=== PATIENT | female | born 1960 | race Caucasian/White ===

== ENCOUNTER 2017-10-24 05:15 | Inpatient (IN) | payer MEDICAID, OTHER ==
[~2017-10-24] VITALS: Ht 157.5 cm; Wt 78.0 kg
[~2017-10-24 05:15] MED LIST: CITA40TA5 PO; INSU100V8 SQ; TRAM50TA2 PO; UNKOWN HTN MED
[2017-10-24] MEDS ORDERED: ALBUTEROL/IPRATROPIUM 2.5MG/0.5MG, 3 ML ONE (05:28)
[2017-10-24 05:51] LABS: MEAN CORPUSCULAR HEMOGLOBIN 30.6 pg (27.0-34.8); MEAN CORPUSCULAR HGB CONC 34.5 g/dL (32.4-35.8); MEAN CORPUSCULAR VOLUME 88.7 fL (80-100); MEAN PLATELET VOLUME 7.8 fL (7.4-10.4); PLATELET COUNT 259 x10^3/uL (130-400); RED BLOOD COUNT 5.21 x10^6/uL (3.82-5.3)
[2017-10-24 05:57] LABS: INTERNATIONAL NORMALIZED RATIO 0.97 (0.93-1.1); PROTHROMBIN TIME 10.1 Seconds (9.6-11.5)
[2017-10-24] MEDS ORDERED: SODIUM CHLORIDE FLUSH 10ML SYR IVF ONE ×2 (06:00→06:30)
[2017-10-24] MEDS ORDERED: ALBUTEROL/IPRATROPIUM 2.5MG/0.5MG, 3 ML NPPB ONE (06:00)
[2017-10-24] MEDS ORDERED: methylPREDNISolone SOD SUCC 125 MG/2 ML IVP ONE (06:00)
[2017-10-24 06:01] LABS: ALANINE AMINOTRANSFERASE 44 U/L (12-78); ALBUMIN 3.2 g/dL (3.4-5.0); ANION GAP 15 mmol/L (5-15); CALCIUM 8.2 mg/dL (8.5-10.1); CHLORIDE 105 mmol/L (98-107); CREATININE 1.43 mg/dL (0.55-1.02)
[2017-10-24 06:05] LABS: ALKALINE PHOSPHATASE 117 U/L (45-117); BILIRUBIN,TOTAL 1.2 mg/dL (0.2-1.0); TROPONIN I < 0.015 ng/mL (0.000-0.045)
[2017-10-24 06:08] LABS: MD YES
[2017-10-24] MEDS ORDERED: methylPREDNISolone SOD SUCC 125 MG/2 ML ONE (06:12)
[2017-10-24 06:15] LABS: BAND#(MANUAL) 4.08 x10^3/uL; BANDS%(MANUAL) 27 % (0-7); LYMPH#(MANUAL) 1.66 x10^3/uL (1-3.4); LYMPHS% (MANUAL) 11 % (22-44); METAMYELOCYTES# (MANUAL) 0.15 x10^3/uL (0-0); METAMYELOCYTES% (MANUAL) 1 % (0-1); MONOS#(MANUAL) 0.45 x10^3/uL (0.3-2.7); MONOS% (MANUAL) 3 % (2-9); SEG#(MANUAL) 8.76 x10^3/uL (1.8-6.8); SEGS% (MANUAL) 58 % (42-75)
[2017-10-24 06:17] LABS: <PLATELET ESTIMATE> ADEQUATE; <PLT MORPHOLOGY> NORMAL PLT MORPH; <RBC MORPHOLOGY> NORMAL; TOXIC GRAN 1+
[2017-10-24] MEDS ORDERED: PIPERACILLIN/TAZO/PMX 3.375GM 50 ML IV ONE (06:30)
[2017-10-24] MEDS ORDERED: SODIUM CHLORIDE 0.9% 1,000ML IVBOLUS ONE ×3 (06:30→11:30)
[2017-10-24] MEDS ORDERED: VANCOMYCIN 1,600 MG in SODIUM CHLORIDE 0.9% 250 ML IV ONE (06:30)
[2017-10-24] MEDS ORDERED: MORPHINE SULFATE 4 MG/ML, 1ML ONE ×2 (06:34→07:13)
[2017-10-24] MEDS: MORPHINE SULFATE 4 MG/ML, 1ML IVPush PRN ×2 (06:36→07:16)
[2017-10-24] MEDS ORDERED: PIPERACILLIN/TAZO/PMX 3.375GM 50 ML ONE (06:37)
[2017-10-24] MEDS ORDERED: POTASSIUM CHLORIDE 40 MEQ in SODIUM CHLORIDE 0.9% 500 ML IV ONE (07:30)
[2017-10-24] MEDS ORDERED: FENTANYL PF 100 MCG/2ML ONE (07:58)
[2017-10-24] MEDS ORDERED: MIDAZOLAM 1 MG/ML, 5ML ONE (08:00)
[2017-10-24] MEDS ORDERED: LIDOCAINE 4% TOPICAL SOLUTION 50 ML ONE (08:00)
[2017-10-24] MEDS ORDERED: ROCURONIUM 10 MG/ML,10ML ONE (08:00)
[2017-10-24] MEDS ORDERED: LIDOCAINE GEL 2%, 5ML ONE (08:00)
[2017-10-24] MEDS ORDERED: LORazepam 2 MG/ML, 1ML IVPush ONE (08:00)
[2017-10-24] MEDS ORDERED: FENTANYL PF 100 MCG/2ML IV ONE (08:00)
[2017-10-24] MEDS ORDERED: PROPOFOL 10 MG/ML, 100ML IV ONE (08:00)
[2017-10-24 09:11] LABS: O2 FLOW 6 L/min
[2017-10-24] MEDS ORDERED: ENALAPRILAT 1.25 MG/ML, 2ML IVPush PRN (09:30)
[2017-10-24] MEDS ORDERED: POLYETHYLENE GLYCOL 17 GM PACKET PO PRN (09:30)
[2017-10-24] MEDS ORDERED: BISACODYL 10 MG SUPP PR PRN ×2 (09:30→11:30)
[2017-10-24] MEDS ORDERED: PROMETHAZINE 25 MG/ML, 1ML IM PRN (09:30)
[2017-10-24] MEDS ORDERED: NS + 20MEQ KCL 1,000 ML IV SCH (10:30)
[2017-10-24] MEDS ORDERED: PROPOFOL 100 ML IV PRN (11:00)
[2017-10-24] MEDS ORDERED: ROCURONIUM 10 MG/ML,10ML IVPush ONE (11:00)
[2017-10-24] MEDS ORDERED: MIDAZOLAM 1 MG/ML, 5ML IVPush ONE (11:00)
[2017-10-24] MEDS: CEFTRIAXONE PMX 2GM/50ML 50 ML IV SCH (11:15)
[2017-10-24] MEDS: DOXYCYCLINE 100 MG in DEXTROSE 5% 250 ML IV SCH ×2 (11:15→23:13)
[2017-10-24] MEDS ORDERED: SENNOSIDES 8.8 MG/5 ML ORAL SOL NG PRN (11:30)
[2017-10-24] MEDS ORDERED: PHARMACY MAY ADJ FOR RENAL FX MC SCH (11:30)
[2017-10-24] MEDS ORDERED: LACTULOSE 20 GM/30 ML UDC NG PRN (11:30)
[2017-10-24] MEDS ORDERED: SENNA/DOCUSATE TABLET NG PRN (11:30)
[2017-10-24] MEDS ORDERED: DEXTROSE 50%, 50ML SYRINGE IVPush PRN (11:30)
[2017-10-24] MEDS ORDERED: GLUCAGON 1 MG IM PRN (11:30)
[2017-10-24] MEDS ORDERED: FAMOTIDINE 20 MG/2 ML IV SCH (11:30)
[2017-10-24] MEDS ORDERED: DEXTROSE 4 GM TAB.CHEW PO PRN (11:30)
[2017-10-24] MEDS ORDERED: INSULIN LISPRO 100 UNITS/ML, PEN SQ-INSULIN SCH (11:30)
[2017-10-24 11:58] LABS: FIO2 100 %
[2017-10-24] MEDS ORDERED: MAGNESIUM SULFATE PMX 4GM/100M 100 ML IV ONE (12:30)
[2017-10-24] MEDS ORDERED: POTASSIUM PHOSPHATE 44 MEQ in SODIUM CHLORIDE 0.9% 500 ML IV ONE (12:30)
[2017-10-24] MEDS: INSULIN LISPRO 100 UNITS/ML, PEN SQ-INSULIN SCH ×3 (12:43→22:31)
[2017-10-24] MEDS: SODIUM CHLORIDE FLUSH 10ML SYR IVF SCH ×2 (12:43→22:30)
[2017-10-24 13:20] LABS: AMPHETAMINE SCREEN, URINE Negative (Negative); BARBITURATE SCREEN, URINE Negative (Negative); BENZODIAZEPINE SCREEN, URINE Positive (Negative); CANNABINOID SCREEN, URINE Negative (Negative); COCAINE SCREEN, URINE Negative (Negative); METHADONE SCREEN, URINE Negative (Negative); OPIATE SCREEN, URINE Positive (Negative)
[2017-10-24 13:25] LABS: FIO2 80 %
[2017-10-24] MEDS ORDERED: SODIUM BICARB IV SCH (14:00)
[2017-10-24] MEDS ORDERED: POTASSIUM CHLORIDE IV SCH (14:00)
[2017-10-24] MEDS ORDERED: [UNRECOGNIZED DRUG - OTHER] IV SCH (14:00)
[2017-10-24] MEDS ORDERED: POTASSIUM CHLORIDE 10% 40 MEQ/30 ML UDC PO ONE (14:00)
[2017-10-24 14:04] LABS: ANION GAP 12 mmol/L (5-15); CHLORIDE 116 mmol/L (98-107); CREATININE 1.08 mg/dL (0.55-1.02)
[2017-10-24] MEDS ORDERED: SODIUM BICARBONATE 1 MEQ/ML, 50ML VIAL IVPush STA (14:22)
[2017-10-24] MEDS: [UNRECOGNIZED DRUG - OTHER] IV SCH ×2 (14:35→23:13)
[2017-10-24] MEDS: SODIUM BICARB IV SCH ×2 (14:35→23:13)
[2017-10-24] MEDS: POTASSIUM ACETATE IV SCH ×2 (14:35→23:13)
[2017-10-24] MEDS: MIDAZOLAM HCL 50 MG in SODIUM CHLORIDE 0.9% 240 ML IV PRN ×2 (15:06→21:03)
[2017-10-24] MEDS: FENTANYL PF 100 MCG/2ML IVPush PRN ×5 (15:14→22:19)
[2017-10-24] MEDS: ALBUTEROL/IPRATROPIUM 2.5MG/0.5MG, 3 ML INLINE SCH ×3 (15:23→22:55)
[2017-10-24] MEDS: NOREPINEPHRINE 4 MG in SODIUM CHLORIDE 0.9% 246 ML IV SCH ×2 (15:47→21:03)
[2017-10-24] MEDS: ACETAMINOPHEN 325 MG TABLET PO PRN (22:16)
[2017-10-24] MEDS: SODIUM CHLORIDE 0.9% 1,000 ML IV SCH (23:13)
[2017-10-25] MEDS: FENTANYL PF 2,500 MCG in SODIUM CHLORIDE 0.9% 200 ML IV PRN ×2 (00:09→16:05)
[2017-10-25] MEDS: ALBUTEROL/IPRATROPIUM 2.5MG/0.5MG, 3 ML INLINE SCH ×6 (02:46→22:31)
[2017-10-25] MEDS: MIDAZOLAM HCL 50 MG in SODIUM CHLORIDE 0.9% 240 ML IV PRN ×4 (03:53→21:14)
[2017-10-25 04:00] VITALS: BP 86/55
[2017-10-25] MEDS: NOREPINEPHRINE 4 MG in SODIUM CHLORIDE 0.9% 246 ML IV SCH ×2 (05:31→21:17)
[2017-10-25 06:04] LABS: ALBUMIN 1.6 g/dL (3.4-5.0); ANION GAP 7 mmol/L (5-15); CALCIUM 7.1 mg/dL (8.5-10.1); CHLORIDE 118 mmol/L (98-107)
[2017-10-25 06:09] LABS: ALANINE AMINOTRANSFERASE 22 U/L (12-78); ALKALINE PHOSPHATASE 49 U/L (45-117); CREATININE 0.79 mg/dL (0.55-1.02); TOTAL PROTEIN 4.9 g/dL (6.4-8.2)
[2017-10-25] MEDS: SODIUM CHLORIDE 0.9% 1,000 ML IV SCH (06:35)
[2017-10-25 06:58] LABS: MEAN CORPUSCULAR HEMOGLOBIN 29.7 pg (27.0-34.8); MEAN CORPUSCULAR HGB CONC 33.5 g/dL (32.4-35.8); MEAN CORPUSCULAR VOLUME 88.8 fL (80-100); MEAN PLATELET VOLUME 7.9 fL (7.4-10.4); PLATELET COUNT 156 x10^3/uL (130-400); RED BLOOD COUNT 3.82 x10^6/uL (3.82-5.3); RED CELL DISTRIBUTION WIDTH 15.5 % (9.6-15.2)
[2017-10-25 07:02] LABS: MD YES
[2017-10-25 07:46] LABS: ANISOCYTOSIS 1+; BANDS%(MANUAL) 31 % (0-7); LYMPH#(MANUAL) 0.38 x10^3/uL (1-3.4); LYMPHS% (MANUAL) 9 % (22-44); METAMYELOCYTES% (MANUAL) 12 % (0-1); MONOS#(MANUAL) 0.17 x10^3/uL (0.3-2.7); MONOS% (MANUAL) 4 % (2-9); PMNS WITH VACUOLES 1+; SEG#(MANUAL) 1.85 x10^3/uL (1.8-6.8); SEGS% (MANUAL) 44 % (42-75); TOXIC GRAN 1+
[2017-10-25 07:47] LABS: <PLATELET ESTIMATE> ADEQUATE; <PLT MORPHOLOGY> NORMAL PLT MORPH
[2017-10-25] MEDS: SODIUM CHLORIDE FLUSH 10ML SYR IVF SCH (09:00)
[2017-10-25] MEDS: INSULIN LISPRO 100 UNITS/ML, PEN SQ-INSULIN SCH ×3 (09:25→21:16)
[2017-10-25] MEDS: PANTOPRAZOLE 40 MG IV IVPush SCH (09:25)
[2017-10-25] MEDS: SENNA/DOCUSATE TABLET PO SCH (09:26)
[2017-10-25] MEDS: CITALOPRAM 20 MG TABLET PO SCH (09:26)
[2017-10-25] MEDS: SODIUM BICARBONATE 8.4% 100 MEQ in SODIUM CHLORIDE 0.45% 1,000 ML IV SCH ×2 (09:48→21:14)
[2017-10-25] MEDS: CEFTRIAXONE PMX 2GM/50ML 50 ML IV SCH (10:34)
[2017-10-25] MEDS: DOXYCYCLINE 100 MG in DEXTROSE 5% 250 ML IV SCH ×2 (11:29→23:42)
[2017-10-25] MEDS: ACETAMINOPHEN 325 MG TABLET PO PRN ×2 (18:27→23:42)
[2017-10-25] MEDS: INSULIN GLARGINE 100 UNITS/ML, PEN SQ-INSULIN SCH (21:16)
[2017-10-26] MEDS: ALBUTEROL/IPRATROPIUM 2.5MG/0.5MG, 3 ML INLINE SCH ×6 (02:48→22:00)
[2017-10-26] MEDS: INSULIN LISPRO 100 UNITS/ML, PEN SQ-INSULIN SCH ×4 (03:52→21:25)
[2017-10-26 04:00] VITALS: BP 94/58
[2017-10-26 04:24] LABS: ANION GAP 6 mmol/L (5-15); CALCIUM 7.2 mg/dL (8.5-10.1); CHLORIDE 116 mmol/L (98-107)
[2017-10-26 04:40] LABS: MEAN CORPUSCULAR HEMOGLOBIN 31.2 pg (27.0-34.8); MEAN CORPUSCULAR HGB CONC 34.6 g/dL (32.4-35.8); MEAN PLATELET VOLUME 8.4 fL (7.4-10.4); PLATELET COUNT 113 x10^3/uL (130-400); RED BLOOD COUNT 3.26 x10^6/uL (3.82-5.3); RED CELL DISTRIBUTION WIDTH 16.8 % (9.6-15.2)
[2017-10-26 05:37] LABS: MD YES
[2017-10-26 05:41] LABS: BAND#(MANUAL) 1.13 x10^3/uL; BANDS%(MANUAL) 21 % (0-7); LYMPH#(MANUAL) 0.38 x10^3/uL (1-3.4); LYMPHS% (MANUAL) 7 % (22-44); MONOS#(MANUAL) 0.16 x10^3/uL (0.3-2.7); MONOS% (MANUAL) 3 % (2-9); NRBC % (MANUAL) 1 % (0-1); SEG#(MANUAL) 3.73 x10^3/uL (1.8-6.8); SEGS% (MANUAL) 69 % (42-75)
[2017-10-26 05:43] LABS: <PLATELET ESTIMATE> DECREASED; <PLT MORPHOLOGY> NORMAL PLT MORPH; <RBC MORPHOLOGY> NORMAL
[2017-10-26] MEDS: SODIUM BICARBONATE 8.4% 100 MEQ in SODIUM CHLORIDE 0.45% 1,000 ML IV SCH ×3 (06:40→23:43)
[2017-10-26] MEDS: LINEZOLID PMX 600MG/300ML 300 ML IV SCH ×2 (08:57→21:21)
[2017-10-26] MEDS: MIDAZOLAM HCL 50 MG in SODIUM CHLORIDE 0.9% 240 ML IV PRN ×2 (08:57→16:23)
[2017-10-26] MEDS: FENTANYL PF 2,500 MCG in SODIUM CHLORIDE 0.9% 200 ML IV PRN (08:58)
[2017-10-26] MEDS: CITALOPRAM 20 MG TABLET PO SCH (08:59)
[2017-10-26] MEDS: NOREPINEPHRINE 4 MG in SODIUM CHLORIDE 0.9% 246 ML IV SCH ×2 (08:59→21:29)
[2017-10-26] MEDS: SENNA/DOCUSATE TABLET PO SCH (08:59)
[2017-10-26] MEDS: PANTOPRAZOLE 40 MG IV IVPush SCH (09:00)
[2017-10-26] MEDS: INSULIN GLARGINE 100 UNITS/ML, PEN SQ-INSULIN SCH ×2 (09:00→21:25)
[2017-10-26] MEDS: CEFTRIAXONE PMX 2GM/50ML 50 ML IV SCH (11:22)
[2017-10-26] MEDS: DOXYCYCLINE 100 MG in DEXTROSE 5% 250 ML IV SCH ×2 (12:09→23:43)
[2017-10-26] MEDS ORDERED: FUROSEMIDE 20 MG/2 ML ONE (16:13)
[2017-10-26] MEDS ORDERED: FUROSEMIDE 20 MG/2 ML IV ONE (16:30)
[2017-10-27] MEDS: MIDAZOLAM HCL 50 MG in SODIUM CHLORIDE 0.9% 240 ML IV PRN (01:41)
[2017-10-27] MEDS: ALBUTEROL/IPRATROPIUM 2.5MG/0.5MG, 3 ML INLINE SCH ×6 (02:00→23:10)
[2017-10-27] MEDS: INSULIN LISPRO 100 UNITS/ML, PEN SQ-INSULIN SCH ×4 (03:37→21:31)
[2017-10-27 04:00] VITALS: BP 110/65
[2017-10-27 04:41] LABS: MEAN CORPUSCULAR HEMOGLOBIN 30.8 pg (27.0-34.8); MEAN CORPUSCULAR HGB CONC 34.2 g/dL (32.4-35.8); MEAN CORPUSCULAR VOLUME 89.9 fL (80-100); MEAN PLATELET VOLUME 8.6 fL (7.4-10.4); PLATELET COUNT 117 x10^3/uL (130-400); RED BLOOD COUNT 3.69 x10^6/uL (3.82-5.3); RED CELL DISTRIBUTION WIDTH 15.9 % (9.6-15.2)
[2017-10-27 04:42] LABS: ANION GAP 6 mmol/L (5-15); CALCIUM 7.6 mg/dL (8.5-10.1); CHLORIDE 104 mmol/L (98-107)
[2017-10-27 04:43] LABS: CREATININE 0.61 mg/dL (0.55-1.02); TRIGLYCERIDES 262 mg/dL (50-200)
[2017-10-27 05:41] LABS: MD YES
[2017-10-27 05:44] LABS: MONOS#(MANUAL) 0.36 x10^3/uL (0.3-2.7); MONOS% (MANUAL) 4 % (2-9)
[2017-10-27 05:46] LABS: ANISOCYTOSIS 1+; BAND#(MANUAL) 1.27 x10^3/uL; BANDS%(MANUAL) 14 % (0-7); LYMPH#(MANUAL) 1.27 x10^3/uL (1-3.4); LYMPHS% (MANUAL) 14 % (22-44); METAMYELOCYTES# (MANUAL) 0.18 x10^3/uL (0-0); METAMYELOCYTES% (MANUAL) 2 % (0-1); SEG#(MANUAL) 6.01 x10^3/uL (1.8-6.8); SEGS% (MANUAL) 66 % (42-75)
[2017-10-27 05:47] LABS: <PLATELET ESTIMATE> DECREASED; <PLT MORPHOLOGY> NORMAL PLT MORPH; PMNS WITH VACUOLES 1+; TOXIC GRAN 1+
[2017-10-27] MEDS: SODIUM BICARBONATE 8.4% 100 MEQ in SODIUM CHLORIDE 0.45% 1,000 ML IV SCH (07:12)
[2017-10-27] MEDS: PANTOPRAZOLE 40 MG IV IVPush SCH (07:45)
[2017-10-27] MEDS ORDERED: SODIUM PHOSPHATE 20 MMOL in SODIUM CHLORIDE 0.9% 500 ML IV ONE (08:00)
[2017-10-27] MEDS: SENNA/DOCUSATE TABLET PO SCH (09:00)
[2017-10-27] MEDS: MIDAZOLAM HCL 100 MG in SODIUM CHLORIDE 0.9% 230 ML IV PRN (09:21)
[2017-10-27] MEDS: LINEZOLID PMX 600MG/300ML 300 ML IV SCH ×2 (09:21→21:30)
[2017-10-27] MEDS: CITALOPRAM 20 MG TABLET PO SCH (09:22)
[2017-10-27] MEDS: INSULIN GLARGINE 100 UNITS/ML, PEN SQ-INSULIN SCH ×2 (09:23→21:31)
[2017-10-27] MEDS: FENTANYL PF 2,500 MCG in SODIUM CHLORIDE 0.9% 200 ML IV PRN (10:35)
[2017-10-27] MEDS: CEFTRIAXONE PMX 2GM/50ML 50 ML IV SCH (11:12)
[2017-10-27] MEDS: NOREPINEPHRINE 4 MG in SODIUM CHLORIDE 0.9% 246 ML IV SCH (19:56)
[2017-10-27] MEDS: ACETAMINOPHEN 325 MG TABLET PO PRN (22:58)
[2017-10-28] MEDS: MIDAZOLAM HCL 100 MG in SODIUM CHLORIDE 0.9% 230 ML IV PRN ×2 (01:44→19:48)
[2017-10-28] MEDS: ALBUTEROL/IPRATROPIUM 2.5MG/0.5MG, 3 ML INLINE SCH ×6 (02:57→23:19)
[2017-10-28] MEDS: INSULIN LISPRO 100 UNITS/ML, PEN SQ-INSULIN SCH ×4 (03:03→21:19)
[2017-10-28 04:00] VITALS: BP 100/58
[2017-10-28 04:56] LABS: MEAN CORPUSCULAR HEMOGLOBIN 30.5 pg (27.0-34.8); MEAN CORPUSCULAR HGB CONC 34.3 g/dL (32.4-35.8); MEAN CORPUSCULAR VOLUME 88.9 fL (80-100); MEAN PLATELET VOLUME 8.9 fL (7.4-10.4); PLATELET COUNT 99 x10^3/uL (130-400); RED CELL DISTRIBUTION WIDTH 16.3 % (9.6-15.2)
[2017-10-28 05:07] LABS: ANION GAP 6 mmol/L (5-15); CALCIUM 7.7 mg/dL (8.5-10.1); CHLORIDE 103 mmol/L (98-107)
[2017-10-28 05:09] LABS: CREATININE 0.48 mg/dL (0.55-1.02)
[2017-10-28 05:39] LABS: MD YES
[2017-10-28 05:41] LABS: BAND#(MANUAL) 1.48 x10^3/uL; BANDS%(MANUAL) 12 % (0-7); LYMPH#(MANUAL) 1.11 x10^3/uL (1-3.4); LYMPHS% (MANUAL) 9 % (22-44); MONOS#(MANUAL) 0.62 x10^3/uL (0.3-2.7); MONOS% (MANUAL) 5 % (2-9); SEGS% (MANUAL) 74 % (42-75)
[2017-10-28 05:42] LABS: TOXIC GRAN 1+
[2017-10-28 05:43] LABS: ANISOCYTOSIS 1+
[2017-10-28 05:45] LABS: <PLATELET ESTIMATE> DECREASED; <PLT MORPHOLOGY> NORMAL PLT MORPH
[2017-10-28] MEDS: SENNA/DOCUSATE TABLET PO SCH (08:46)
[2017-10-28] MEDS: LINEZOLID PMX 600MG/300ML 300 ML IV SCH ×2 (08:46→21:33)
[2017-10-28] MEDS: POTASSIUM CHLORIDE 10% 40 MEQ/30 ML UDC PO SCH ×2 (08:46→21:19)
[2017-10-28] MEDS: CITALOPRAM 20 MG TABLET PO SCH (08:47)
[2017-10-28] MEDS: PANTOPRAZOLE 40 MG IV IVPush SCH (11:24)
[2017-10-28] MEDS: INSULIN GLARGINE 100 UNITS/ML, PEN SQ-INSULIN SCH ×2 (11:30→21:20)
[2017-10-28] MEDS: ACETAMINOPHEN 325 MG TABLET PO PRN (18:08)
[2017-10-28] MEDS: FENTANYL PF 2,500 MCG in SODIUM CHLORIDE 0.9% 200 ML IV PRN (21:05)
[2017-10-29] MEDS: LIDOCAINE-MPF 1%, 2ML ENDO PRN ×4 (01:45→22:13)
[2017-10-29] MEDS: INSULIN LISPRO 100 UNITS/ML, PEN SQ-INSULIN SCH ×4 (02:59→21:20)
[2017-10-29] MEDS: ALBUTEROL/IPRATROPIUM 2.5MG/0.5MG, 3 ML INLINE SCH ×6 (03:04→22:10)
[2017-10-29 04:00] VITALS: BP 101/59
[2017-10-29 04:24] LABS: MEAN CORPUSCULAR HEMOGLOBIN 30.2 pg (27.0-34.8); MEAN CORPUSCULAR HGB CONC 33.4 g/dL (32.4-35.8); MEAN CORPUSCULAR VOLUME 90.4 fL (80-100); MEAN PLATELET VOLUME 8.8 fL (7.4-10.4); PLATELET COUNT 125 x10^3/uL (130-400); RED BLOOD COUNT 3.25 x10^6/uL (3.82-5.3); RED CELL DISTRIBUTION WIDTH 16.6 % (9.6-15.2)
[2017-10-29 04:30] LABS: ANION GAP 8 mmol/L (5-15); CALCIUM 7.9 mg/dL (8.5-10.1); CHLORIDE 106 mmol/L (98-107); CREATININE 0.49 mg/dL (0.55-1.02)
[2017-10-29 05:03] LABS: MD YES
[2017-10-29 05:09] LABS: ANISOCYTOSIS 1+; BAND#(MANUAL) 0.81 x10^3/uL; BANDS%(MANUAL) 6 % (0-7); LYMPH#(MANUAL) 0.41 x10^3/uL (1-3.4); LYMPHS% (MANUAL) 3 % (22-44); METAMYELOCYTES# (MANUAL) 0.14 x10^3/uL (0-0); METAMYELOCYTES% (MANUAL) 1 % (0-1); MONOS#(MANUAL) 0.54 x10^3/uL (0.3-2.7); MONOS% (MANUAL) 4 % (2-9); SEG#(MANUAL) 11.61 x10^3/uL (1.8-6.8); SEGS% (MANUAL) 86 % (42-75); TOXIC GRAN 1+
[2017-10-29 05:10] LABS: <PLATELET ESTIMATE> DECREASED; <PLT MORPHOLOGY> NORMAL PLT MORPH
[2017-10-29] MEDS: SENNA/DOCUSATE TABLET PO SCH (07:54)
[2017-10-29] MEDS: CITALOPRAM 20 MG TABLET PO SCH (08:53)
[2017-10-29] MEDS: PANTOPRAZOLE 40 MG IV IVPush SCH (08:53)
[2017-10-29] MEDS: LINEZOLID PMX 600MG/300ML 300 ML IV SCH (08:54)
[2017-10-29] MEDS ORDERED: VANCOMYCIN PER PHARMACY MC PRN (09:30)
[2017-10-29] MEDS ORDERED: PHARMACOKINETIC MONITORING MC PRN (09:30)
[2017-10-29] MEDS ORDERED: PHARMACOKINETIC CONSULTATION MC ONE (09:30)
[2017-10-29] MEDS: ENOXAPARIN 30 MG/0.3 ML SQ SCH ×2 (10:00→22:53)
[2017-10-29] MEDS: INSULIN GLARGINE 100 UNITS/ML, PEN SQ-INSULIN SCH ×2 (10:48→21:20)
[2017-10-29] MEDS: VANCOMYCIN 1,800 MG in SODIUM CHLORIDE 0.9% 250 ML IV SCH ×2 (11:55→22:53)
[2017-10-30] MEDS: ALBUTEROL/IPRATROPIUM 2.5MG/0.5MG, 3 ML INLINE SCH ×6 (02:00→22:00)
[2017-10-30] MEDS: LIDOCAINE-MPF 1%, 2ML ENDO PRN ×2 (02:15→06:10)
[2017-10-30] MEDS: INSULIN LISPRO 100 UNITS/ML, PEN SQ-INSULIN SCH ×4 (03:08→21:53)
[2017-10-30 04:00] VITALS: BP 116/60
[2017-10-30] MEDS: MIDAZOLAM HCL 100 MG in SODIUM CHLORIDE 0.9% 230 ML IV PRN (04:42)
[2017-10-30 04:58] LABS: ANION GAP 6 mmol/L (5-15); CALCIUM 7.9 mg/dL (8.5-10.1); CHLORIDE 106 mmol/L (98-107); CREATININE 0.41 mg/dL (0.55-1.02); TRIGLYCERIDES 200 mg/dL (50-200)
[2017-10-30 05:05] LABS: MEAN CORPUSCULAR HEMOGLOBIN 30.6 pg (27.0-34.8); MEAN CORPUSCULAR HGB CONC 34.4 g/dL (32.4-35.8); MEAN CORPUSCULAR VOLUME 89.1 fL (80-100); MEAN PLATELET VOLUME 8.5 fL (7.4-10.4); PLATELET COUNT 183 x10^3/uL (130-400); RED BLOOD COUNT 3.28 x10^6/uL (3.82-5.3); RED CELL DISTRIBUTION WIDTH 15.9 % (9.6-15.2)
[2017-10-30 05:42] LABS: MD YES
[2017-10-30 05:44] LABS: ANISOCYTOSIS 1+; BANDS%(MANUAL) 4 % (0-7); LYMPH#(MANUAL) 0.76 x10^3/uL (1-3.4); LYMPHS% (MANUAL) 6 % (22-44); METAMYELOCYTES# (MANUAL) 0.13 x10^3/uL (0-0); METAMYELOCYTES% (MANUAL) 1 % (0-1); MONOS% (MANUAL) 4 % (2-9); SEG#(MANUAL) 10.71 x10^3/uL (1.8-6.8); SEGS% (MANUAL) 85 % (42-75); TOXIC GRAN 1+
[2017-10-30 05:46] LABS: <PLATELET ESTIMATE> ADEQUATE; LARGE PLATELETS 1+
[2017-10-30] MEDS: SENNA/DOCUSATE TABLET PO SCH (08:02)
[2017-10-30] MEDS: PANTOPRAZOLE 40 MG IV IVPush SCH (08:02)
[2017-10-30] MEDS: CITALOPRAM 20 MG TABLET PO SCH (08:02)
[2017-10-30] MEDS: INSULIN GLARGINE 100 UNITS/ML, PEN SQ-INSULIN SCH ×2 (09:01→21:53)
[2017-10-30] MEDS: ENOXAPARIN 30 MG/0.3 ML SQ SCH ×2 (10:46→23:18)
[2017-10-30] MEDS: QUETIAPINE 25MG TABLET PO SCH ×2 (10:47→18:27)
[2017-10-30] MEDS: VANCOMYCIN 1,800 MG in SODIUM CHLORIDE 0.9% 250 ML IV SCH ×2 (12:07→23:18)
[2017-10-30] MEDS: ACETAMINOPHEN 325 MG TABLET PO PRN (15:36)
[2017-10-30] MEDS: FENTANYL PF 2,500 MCG in SODIUM CHLORIDE 0.9% 200 ML IV PRN (18:28)
[2017-10-31] MEDS: ALBUTEROL/IPRATROPIUM 2.5MG/0.5MG, 3 ML INLINE SCH ×6 (02:00→21:45)
[2017-10-31] MEDS: ACETAMINOPHEN 325 MG TABLET PO PRN ×3 (02:12→19:39)
[2017-10-31] MEDS: QUETIAPINE 25MG TABLET PO SCH ×3 (02:12→18:31)
[2017-10-31 03:26] VITALS: BP 109/61
[2017-10-31 04:17] LABS: FIO2 50 %
[2017-10-31 04:23] LABS: BASOPHILS # (AUTO) 0.02 x10^3/uL (0-0.1); BASOPHILS % (AUTO) 0 % (0-1); EOSINOPHILS # (AUTO) 0.05 x10^3/uL (0-0.4); EOSINOPHILS % (AUTO) 1 % (1-7); LYMPHOCYTES # (AUTO) 1.03 x10^3/uL (1-3.4); LYMPHOCYTES % (AUTO) 9 % (22-44); MD NO; MEAN CORPUSCULAR HEMOGLOBIN 30.5 pg (27.0-34.8); MEAN CORPUSCULAR HGB CONC 33.9 g/dL (32.4-35.8); MEAN CORPUSCULAR VOLUME 90.2 fL (80-100); MEAN PLATELET VOLUME 8.4 fL (7.4-10.4); MONOCYTES # (AUTO) 0.38 x10^3/uL (0.2-0.8); MONOCYTES % (AUTO) 3 % (2-9); NEUTROPHILS # (AUTO) 10.57 x10^3/uL (1.8-6.8); NEUTROPHILS % (AUTO) 88 % (42-75); PLATELET COUNT 265 x10^3/uL (130-400); RED BLOOD COUNT 3.04 x10^6/uL (3.82-5.3)
[2017-10-31 04:29] LABS: ANION GAP 8 mmol/L (5-15); CALCIUM 7.3 mg/dL (8.5-10.1); CHLORIDE 106 mmol/L (98-107); CREATININE 0.37 mg/dL (0.55-1.02)
[2017-10-31] MEDS: MIDAZOLAM HCL 100 MG in SODIUM CHLORIDE 0.9% 230 ML IV PRN (04:30)
[2017-10-31] MEDS: INSULIN LISPRO 100 UNITS/ML, PEN SQ-INSULIN SCH ×4 (04:30→21:21)
[2017-10-31] MEDS: PANTOPRAZOLE 40 MG IV IVPush SCH (07:50)
[2017-10-31] MEDS: SENNA/DOCUSATE TABLET PO SCH (07:50)
[2017-10-31] MEDS: CITALOPRAM 20 MG TABLET PO SCH (07:50)
[2017-10-31] MEDS: INSULIN GLARGINE 100 UNITS/ML, PEN SQ-INSULIN SCH ×2 (07:55→21:21)
[2017-10-31] MEDS ORDERED: FUROSEMIDE 20 MG/2 ML IV ONE (09:30)
[2017-10-31] MEDS ORDERED: ALBUMIN HUMAN 25% 100 ML IV ONE (09:30)
[2017-10-31] MEDS: ENOXAPARIN 30 MG/0.3 ML SQ SCH ×2 (10:37→23:16)
[2017-10-31] MEDS ORDERED: INSULIN GLARGINE 100 UNITS/ML, PEN SQ-INSULIN ONE (11:00)
[2017-10-31] MEDS: VANCOMYCIN 1,800 MG in SODIUM CHLORIDE 0.9% 250 ML IV SCH (11:11)
[2017-10-31] MEDS: LIDOCAINE-MPF 1%, 2ML ENDO PRN ×2 (18:45→21:01)
[2017-10-31] MEDS: VANCOMYCIN 1,900 MG in SODIUM CHLORIDE 0.9% 250 ML IV SCH (23:16)
[2017-11-01] MEDS: LIDOCAINE-MPF 1%, 2ML ENDO PRN (00:03)
[2017-11-01] MEDS: LORazepam 2 MG/ML, 1ML IVPush PRN ×6 (01:19→21:27)
[2017-11-01] MEDS: ALBUTEROL/IPRATROPIUM 2.5MG/0.5MG, 3 ML INLINE SCH ×6 (02:00→22:00)
[2017-11-01] MEDS: QUETIAPINE 25MG TABLET PO SCH ×3 (03:05→17:30)
[2017-11-01] MEDS: GUAIFENESIN/COD200MG-20MG/10ML LIQUID PO PRN (03:05)
[2017-11-01] MEDS: INSULIN LISPRO 100 UNITS/ML, PEN SQ-INSULIN SCH ×4 (03:05→21:42)
[2017-11-01 04:29] LABS: ANION GAP 8 mmol/L (5-15); CALCIUM 7.9 mg/dL (8.5-10.1); CHLORIDE 106 mmol/L (98-107)
[2017-11-01 04:31] LABS: CREATININE 0.36 mg/dL (0.55-1.02)
[2017-11-01 04:41] VITALS: BP 120/71
[2017-11-01] MEDS ORDERED: DIAZEPAM 5 MG/ML, 2ML IV PRN (08:30)
[2017-11-01] MEDS: CITALOPRAM 20 MG TABLET PO SCH (09:10)
[2017-11-01] MEDS: PANTOPRAZOLE 40 MG IV IVPush SCH (09:12)
[2017-11-01] MEDS: INSULIN GLARGINE 100 UNITS/ML, PEN SQ-INSULIN SCH ×2 (09:12→21:42)
[2017-11-01 10:42] LABS: MEAN CORPUSCULAR HEMOGLOBIN 30.2 pg (27.0-34.8); MEAN CORPUSCULAR VOLUME 88.7 fL (80-100); MEAN PLATELET VOLUME 7.9 fL (7.4-10.4); PLATELET COUNT 395 x10^3/uL (130-400); RED BLOOD COUNT 3.02 x10^6/uL (3.82-5.3); RED CELL DISTRIBUTION WIDTH 15.6 % (9.6-15.2)
[2017-11-01] MEDS: FOLIC ACID 1 MG TABLET PO SCH (11:22)
[2017-11-01] MEDS: THIAMINE 100MG TABLET PO SCH (11:22)
[2017-11-01] MEDS: ENOXAPARIN 30 MG/0.3 ML SQ SCH ×2 (11:23→23:45)
[2017-11-01] MEDS: VANCOMYCIN 1,900 MG in SODIUM CHLORIDE 0.9% 250 ML IV SCH ×2 (11:23→23:45)
[2017-11-01 12:13] LABS: MD YES
[2017-11-01 12:15] LABS: BAND#(MANUAL) 1.12 x10^3/uL; BANDS%(MANUAL) 8 % (0-7); LYMPH#(MANUAL) 0.14 x10^3/uL (1-3.4); LYMPHS% (MANUAL) 1 % (22-44); METAMYELOCYTES# (MANUAL) 0.14 x10^3/uL (0-0); METAMYELOCYTES% (MANUAL) 1 % (0-1); MONOS% (MANUAL) 10 % (2-9); SEGS% (MANUAL) 80 % (42-75)
[2017-11-01 12:16] LABS: <PLATELET ESTIMATE> ADEQUATE; ANISOCYTOSIS 1+; LARGE PLATELETS 1+; POLYCHROMASIA 1+
[2017-11-01] MEDS: ALBUMIN HUMAN 25% 100 ML IV SCH (12:30)
[2017-11-01] MEDS: FUROSEMIDE 20 MG/2 ML IV SCH (12:30)
[2017-11-01] MEDS: ACETAMINOPHEN 325 MG TABLET PO PRN (20:25)
[2017-11-01] MEDS: DIAZEPAM 5 MG/ML, 10ML VIAL IV PRN (23:49)
[2017-11-02] MEDS: FUROSEMIDE 20 MG/2 ML IV SCH ×2 (00:42→11:38)
[2017-11-02] MEDS: ALBUMIN HUMAN 25% 100 ML IV SCH ×2 (00:42→11:37)
[2017-11-02] MEDS: QUETIAPINE 25MG TABLET PO SCH ×3 (00:43→17:14)
[2017-11-02] MEDS: LORazepam 2 MG/ML, 1ML IVPush PRN ×5 (01:36→20:00)
[2017-11-02] MEDS: ALBUTEROL/IPRATROPIUM 2.5MG/0.5MG, 3 ML INLINE SCH ×6 (02:40→22:00)
[2017-11-02] MEDS: INSULIN LISPRO 100 UNITS/ML, PEN SQ-INSULIN SCH ×4 (03:13→20:07)
[2017-11-02 04:12] VITALS: BP 99/54
[2017-11-02 04:49] LABS: BASOPHILS # (AUTO) 0.02 x10^3/uL (0-0.1); BASOPHILS % (AUTO) 0 % (0-1); EOSINOPHILS # (AUTO) 0.05 x10^3/uL (0-0.4); EOSINOPHILS % (AUTO) 0 % (1-7); LYMPHOCYTES # (AUTO) 1.14 x10^3/uL (1-3.4); LYMPHOCYTES % (AUTO) 8 % (22-44); MD NO; MEAN CORPUSCULAR HEMOGLOBIN 30.3 pg (27.0-34.8); MEAN CORPUSCULAR HGB CONC 33.8 g/dL (32.4-35.8); MEAN CORPUSCULAR VOLUME 89.8 fL (80-100); MEAN PLATELET VOLUME 8.2 fL (7.4-10.4); MONOCYTES # (AUTO) 0.64 x10^3/uL (0.2-0.8); MONOCYTES % (AUTO) 5 % (2-9); NEUTROPHILS # (AUTO) 11.67 x10^3/uL (1.8-6.8); NEUTROPHILS % (AUTO) 86 % (42-75); PLATELET COUNT 424 x10^3/uL (130-400); RED BLOOD COUNT 2.83 x10^6/uL (3.82-5.3); RED CELL DISTRIBUTION WIDTH 16.3 % (9.6-15.2)
[2017-11-02 05:00] LABS: ALBUMIN 1.9 g/dL (3.4-5.0); ANION GAP 8 mmol/L (5-15); CALCIUM 7.8 mg/dL (8.5-10.1); CHLORIDE 104 mmol/L (98-107)
[2017-11-02 05:05] LABS: ALANINE AMINOTRANSFERASE 41 U/L (12-78); ALKALINE PHOSPHATASE 106 U/L (45-117); BILIRUBIN,TOTAL 0.7 mg/dL (0.2-1.0); TOTAL PROTEIN 6.2 g/dL (6.4-8.2); TRIGLYCERIDES 140 mg/dL (50-200)
[2017-11-02] MEDS: PANTOPRAZOLE 40 MG IV IVPush SCH (07:47)
[2017-11-02] MEDS: DIAZEPAM 5 MG/ML, 10ML VIAL IV PRN ×2 (07:47→15:52)
[2017-11-02] MEDS: CITALOPRAM 20 MG TABLET PO SCH (09:19)
[2017-11-02] MEDS: FOLIC ACID 1 MG TABLET PO SCH (09:19)
[2017-11-02] MEDS: THIAMINE 100MG TABLET PO SCH (09:19)
[2017-11-02] MEDS: INSULIN GLARGINE 100 UNITS/ML, PEN SQ-INSULIN SCH ×2 (10:01→20:22)
[2017-11-02] MEDS ORDERED: MIDAZOLAM 1 MG/ML, 5ML ONE (10:34)
[2017-11-02] MEDS: CEFTAROLINE 600 MG in SODIUM CHLORIDE 0.9% 100 ML IV SCH ×2 (11:37→18:59)
[2017-11-02] MEDS: ENOXAPARIN 30 MG/0.3 ML SQ SCH ×2 (11:37→23:54)
[2017-11-02] MEDS: FENTANYL PF 2,500 MCG in SODIUM CHLORIDE 0.9% 200 ML IV PRN (14:55)
[2017-11-02] MEDS: PROPOFOL 100 ML IV PRN (20:46)
[2017-11-03] MEDS: QUETIAPINE 25MG TABLET PO SCH ×3 (00:28→17:02)
[2017-11-03] MEDS: PROPOFOL 100 ML IV PRN ×5 (00:40→23:33)
[2017-11-03] MEDS: FUROSEMIDE 20 MG/2 ML IV SCH ×3 (02:00→21:43)
[2017-11-03] MEDS: ALBUMIN HUMAN 25% 100 ML IV SCH ×3 (02:00→21:00)
[2017-11-03] MEDS: ALBUTEROL/IPRATROPIUM 2.5MG/0.5MG, 3 ML INLINE SCH ×6 (02:00→22:00)
[2017-11-03] MEDS: CEFTAROLINE 600 MG in SODIUM CHLORIDE 0.9% 100 ML IV SCH ×3 (03:25→19:47)
[2017-11-03] MEDS: INSULIN LISPRO 100 UNITS/ML, PEN SQ-INSULIN SCH ×4 (03:26→21:00)
[2017-11-03 04:00] VITALS: BP 120/67
[2017-11-03 04:36] LABS: MEAN CORPUSCULAR HEMOGLOBIN 30.7 pg (27.0-34.8); MEAN CORPUSCULAR HGB CONC 33.9 g/dL (32.4-35.8); MEAN CORPUSCULAR VOLUME 90.4 fL (80-100); MEAN PLATELET VOLUME 7.8 fL (7.4-10.4); PLATELET COUNT 438 x10^3/uL (130-400); RED BLOOD COUNT 2.58 x10^6/uL (3.82-5.3); RED CELL DISTRIBUTION WIDTH 15.6 % (9.6-15.2)
[2017-11-03 04:42] LABS: ANION GAP 6 mmol/L (5-15); CALCIUM 7.6 mg/dL (8.5-10.1); CHLORIDE 102 mmol/L (98-107)
[2017-11-03 04:43] LABS: CREATININE 0.39 mg/dL (0.55-1.02)
[2017-11-03 05:05] LABS: MD YES
[2017-11-03 05:07] LABS: ANISOCYTOSIS 1+; BAND#(MANUAL) 1.03 x10^3/uL; BANDS%(MANUAL) 8 % (0-7); LYMPH#(MANUAL) 1.42 x10^3/uL (1-3.4); LYMPHS% (MANUAL) 11 % (22-44); MONOS#(MANUAL) 0.26 x10^3/uL (0.3-2.7); MONOS% (MANUAL) 2 % (2-9); SEG#(MANUAL) 10.19 x10^3/uL (1.8-6.8); SEGS% (MANUAL) 79 % (42-75)
[2017-11-03 05:08] LABS: <PLATELET ESTIMATE> ADEQUATE; <PLT MORPHOLOGY> NORMAL PLT MORPH
[2017-11-03] MEDS: PANTOPRAZOLE 40 MG IV IVPush SCH (08:53)
[2017-11-03] MEDS: CITALOPRAM 20 MG TABLET PO SCH (08:54)
[2017-11-03] MEDS: FOLIC ACID 1 MG TABLET PO SCH (08:55)
[2017-11-03] MEDS: THIAMINE 100MG TABLET PO SCH (08:55)
[2017-11-03] MEDS: INSULIN GLARGINE 100 UNITS/ML, PEN SQ-INSULIN SCH ×2 (08:59→20:01)
[2017-11-03] MEDS: ENOXAPARIN 30 MG/0.3 ML SQ SCH ×2 (11:46→23:32)
[2017-11-03] MEDS: DIAZEPAM 5 MG/ML, 10ML VIAL IV PRN ×2 (12:22→21:44)
[2017-11-03] MEDS: FENTANYL PF 2,500 MCG in SODIUM CHLORIDE 0.9% 200 ML IV PRN (15:04)
[2017-11-03] MEDS: LIDOCAINE-MPF 1%, 2ML ENDO PRN (17:03)
[2017-11-03] MEDS ORDERED: POTASSIUM CHLORIDE 20 MEQ PACKET PO ONE (17:30)
[2017-11-03] MEDS: LORazepam 2 MG/ML, 1ML IVPush PRN (21:05)
[2017-11-03] MEDS: DEXMEDETOMIDINE 1,000 MCG in SODIUM CHLORIDE 0.9% 240 ML IV PRN (21:43)
[2017-11-04] MEDS: LORazepam 2 MG/ML, 1ML IVPush PRN (01:23)
[2017-11-04] MEDS: QUETIAPINE 25MG TABLET PO SCH ×4 (01:25→23:57)
[2017-11-04] MEDS: ALBUTEROL/IPRATROPIUM 2.5MG/0.5MG, 3 ML INLINE SCH ×6 (02:00→22:00)
[2017-11-04] MEDS: CEFTAROLINE 600 MG in SODIUM CHLORIDE 0.9% 100 ML IV SCH ×3 (03:34→19:54)
[2017-11-04] MEDS: LIDOCAINE-MPF 1%, 2ML ENDO PRN ×2 (03:35→16:32)
[2017-11-04] MEDS: INSULIN LISPRO 100 UNITS/ML, PEN SQ-INSULIN SCH ×4 (03:48→20:54)
[2017-11-04 04:00] VITALS: BP 119/67
[2017-11-04] MEDS: ALBUMIN HUMAN 25% 100 ML IV SCH ×3 (05:00→20:51)
[2017-11-04 05:40] LABS: MEAN CORPUSCULAR HEMOGLOBIN 30.1 pg (27.0-34.8); MEAN CORPUSCULAR HGB CONC 33.4 g/dL (32.4-35.8); MEAN CORPUSCULAR VOLUME 90.3 fL (80-100); MEAN PLATELET VOLUME 8.1 fL (7.4-10.4); PLATELET COUNT 494 x10^3/uL (130-400); RED BLOOD COUNT 2.54 x10^6/uL (3.82-5.3); RED CELL DISTRIBUTION WIDTH 15.6 % (9.6-15.2)
[2017-11-04 05:41] LABS: CHLORIDE 103 mmol/L (98-107)
[2017-11-04] MEDS: FUROSEMIDE 20 MG/2 ML IV SCH ×3 (05:54→22:02)
[2017-11-04] MEDS: ACETAMINOPHEN 325 MG TABLET PO PRN ×2 (05:54→16:28)
[2017-11-04] MEDS: DIAZEPAM 5 MG/ML, 10ML VIAL IV PRN (05:54)
[2017-11-04 06:00] LABS: MD YES
[2017-11-04 06:02] LABS: BAND#(MANUAL) 0.29 x10^3/uL; BANDS%(MANUAL) 2 % (0-7); LYMPH#(MANUAL) 0.57 x10^3/uL (1-3.4); LYMPHS% (MANUAL) 4 % (22-44); METAMYELOCYTES# (MANUAL) 0.14 x10^3/uL (0-0); METAMYELOCYTES% (MANUAL) 1 % (0-1); MONOS#(MANUAL) 0.57 x10^3/uL (0.3-2.7); MONOS% (MANUAL) 4 % (2-9); SEG#(MANUAL) 12.73 x10^3/uL (1.8-6.8); SEGS% (MANUAL) 89 % (42-75)
[2017-11-04 06:03] LABS: <PLATELET ESTIMATE> INCREASED; <PLT MORPHOLOGY> NORMAL PLT MORPH; ANISOCYTOSIS 1+; POLYCHROMASIA 1+
[2017-11-04 06:12] LABS: ALANINE AMINOTRANSFERASE 42 U/L (12-78); ALBUMIN 2.7 g/dL (3.4-5.0); ALKALINE PHOSPHATASE 110 U/L (45-117); ANION GAP 9 mmol/L (5-15); BILIRUBIN,TOTAL 0.8 mg/dL (0.2-1.0); TOTAL PROTEIN 6.8 g/dL (6.4-8.2)
[2017-11-04] MEDS: FOLIC ACID 1 MG TABLET PO SCH (08:21)
[2017-11-04] MEDS: PANTOPRAZOLE 40 MG IV IVPush SCH (08:21)
[2017-11-04] MEDS: CITALOPRAM 20 MG TABLET PO SCH (08:22)
[2017-11-04] MEDS: THIAMINE 100MG TABLET PO SCH (08:22)
[2017-11-04] MEDS: INSULIN GLARGINE 100 UNITS/ML, PEN SQ-INSULIN SCH ×2 (08:58→20:54)
[2017-11-04] MEDS ORDERED: METOLAZONE 2.5 MG TABLET PO SCH (09:06)
[2017-11-04] MEDS ORDERED: METOLAZONE 5 MG TABLET ONE ×2 (09:59→17:23)
[2017-11-04] MEDS: DEXMEDETOMIDINE 1,000 MCG in SODIUM CHLORIDE 0.9% 240 ML IV PRN ×2 (10:06→19:54)
[2017-11-04] MEDS: METOLAZONE 2.5 MG TABLET PO SCH ×2 (10:07→17:00)
[2017-11-04] MEDS: ENOXAPARIN 30 MG/0.3 ML SQ SCH ×2 (12:35→23:57)
[2017-11-04] MEDS ORDERED: ZIPRASIDONE 20 MG INJ IM ONE (17:44)
[2017-11-04] MEDS ORDERED: ZIPRASIDONE 20 MG INJ IM PRN (18:00)
[2017-11-04] MEDS: FENTANYL PF 2,500 MCG in SODIUM CHLORIDE 0.9% 200 ML IV PRN (19:54)
[2017-11-05] MEDS: ALBUTEROL/IPRATROPIUM 2.5MG/0.5MG, 3 ML INLINE SCH ×7 (02:00→23:07)
[2017-11-05] MEDS: INSULIN LISPRO 100 UNITS/ML, PEN SQ-INSULIN SCH ×4 (02:51→21:00)
[2017-11-05] MEDS: CEFTAROLINE 600 MG in SODIUM CHLORIDE 0.9% 100 ML IV SCH ×3 (02:51→20:14)
[2017-11-05] MEDS: LIDOCAINE-MPF 1%, 2ML ENDO PRN ×2 (02:56→05:22)
[2017-11-05] MEDS: ALBUMIN HUMAN 25% 100 ML IV SCH ×3 (03:48→21:07)
[2017-11-05 04:00] VITALS: BP 100/54
[2017-11-05] MEDS: DEXMEDETOMIDINE 1,000 MCG in SODIUM CHLORIDE 0.9% 240 ML IV PRN (04:22)
[2017-11-05 04:30] LABS: MEAN CORPUSCULAR HEMOGLOBIN 30.7 pg (27.0-34.8); MEAN CORPUSCULAR HGB CONC 34.6 g/dL (32.4-35.8); MEAN CORPUSCULAR VOLUME 88.6 fL (80-100); MEAN PLATELET VOLUME 8.2 fL (7.4-10.4); PLATELET COUNT 454 x10^3/uL (130-400); RED BLOOD COUNT 2.55 x10^6/uL (3.82-5.3); RED CELL DISTRIBUTION WIDTH 15.6 % (9.6-15.2)
[2017-11-05 04:34] LABS: ANION GAP 8 mmol/L (5-15); CALCIUM 8.6 mg/dL (8.5-10.1); CHLORIDE 96 mmol/L (98-107)
[2017-11-05 04:35] LABS: CREATININE 0.56 mg/dL (0.55-1.02); TRIGLYCERIDES 131 mg/dL (50-200)
[2017-11-05 04:48] LABS: MD YES
[2017-11-05] MEDS: FUROSEMIDE 20 MG/2 ML IV SCH ×3 (04:54→20:24)
[2017-11-05 04:55] LABS: ANISOCYTOSIS 1+; BAND#(MANUAL) 0.15 x10^3/uL; BANDS%(MANUAL) 1 % (0-7); EOS#(MANUAL) 0.15 x10^3/uL (0.0-0.4); EOS% (MANUAL) 1 % (1-7); LYMPH#(MANUAL) 2.35 x10^3/uL (1-3.4); LYMPHS% (MANUAL) 16 % (22-44); MONOS#(MANUAL) 0.29 x10^3/uL (0.3-2.7); MONOS% (MANUAL) 2 % (2-9); MYELOCYTES# (MANUAL) 0.44 x10^3/uL (0-0); MYELOCYTES% (MANUAL) 3 % (0-0); POLYCHROMASIA 1+; SEG#(MANUAL) 11.32 x10^3/uL (1.8-6.8); SEGS% (MANUAL) 77 % (42-75)
[2017-11-05 04:57] LABS: STOMATOCYTES 1+
[2017-11-05 04:58] LABS: <PLATELET ESTIMATE> ADEQUATE; <PLT MORPHOLOGY> NORMAL PLT MORPH
[2017-11-05] MEDS ORDERED: METOLAZONE 5 MG TABLET ONE (07:41)
[2017-11-05] MEDS: PANTOPRAZOLE 40 MG IV IVPush SCH (08:02)
[2017-11-05] MEDS: METOLAZONE 2.5 MG TABLET PO SCH ×2 (08:03→17:00)
[2017-11-05] MEDS: QUETIAPINE 25MG TABLET PO SCH ×2 (08:04→16:30)
[2017-11-05] MEDS: INSULIN GLARGINE 100 UNITS/ML, PEN SQ-INSULIN SCH ×2 (09:00→21:00)
[2017-11-05] MEDS ORDERED: RACEPINEPHRINE INH 2.25%, 0.5ML ONE (09:15)
[2017-11-05] MEDS: ONDANSETRON ODT 4 MG PO PRN (10:40)
[2017-11-05] MEDS: THIAMINE 100MG TABLET PO SCH (10:41)
[2017-11-05] MEDS: FOLIC ACID 1 MG TABLET PO SCH (10:41)
[2017-11-05] MEDS: CITALOPRAM 20 MG TABLET PO SCH (10:41)
[2017-11-05] MEDS: ENOXAPARIN 30 MG/0.3 ML SQ SCH (11:00)
[2017-11-05] MEDS: SIMETHICONE 125 MG CHEW TAB PO SCH ×2 (13:00→18:00)
[2017-11-05] MEDS: FENTANYL PF 100 MCG/2ML IVPush PRN (21:17)
[2017-11-06] MEDS: ENOXAPARIN 30 MG/0.3 ML SQ SCH ×3 (00:10→23:29)
[2017-11-06] MEDS: QUETIAPINE 25MG TABLET PO SCH ×2 (00:30→08:30)
[2017-11-06] MEDS: INSULIN LISPRO 100 UNITS/ML, PEN SQ-INSULIN SCH ×6 (03:00→22:28)
[2017-11-06] MEDS: CEFTAROLINE 600 MG in SODIUM CHLORIDE 0.9% 100 ML IV SCH ×3 (03:23→19:41)
[2017-11-06] MEDS: ALBUMIN HUMAN 25% 100 ML IV SCH ×3 (03:29→19:40)
[2017-11-06] MEDS: ALBUTEROL/IPRATROPIUM 2.5MG/0.5MG, 3 ML INLINE SCH ×6 (03:43→23:08)
[2017-11-06 04:00] VITALS: BP 123/63
[2017-11-06] MEDS: FENTANYL PF 100 MCG/2ML IVPush PRN ×5 (04:07→21:24)
[2017-11-06] MEDS: FUROSEMIDE 20 MG/2 ML IV SCH ×3 (04:07→21:14)
[2017-11-06 05:54] LABS: ANION GAP 9 mmol/L (5-15); CALCIUM 8.6 mg/dL (8.5-10.1); CHLORIDE 95 mmol/L (98-107)
[2017-11-06 05:56] LABS: CREATININE 0.54 mg/dL (0.55-1.02)
[2017-11-06 06:44] LABS: MD YES; MEAN CORPUSCULAR HEMOGLOBIN 29.7 pg (27.0-34.8); MEAN CORPUSCULAR HGB CONC 33.1 g/dL (32.4-35.8); MEAN CORPUSCULAR VOLUME 89.7 fL (80-100); MEAN PLATELET VOLUME 7.9 fL (7.4-10.4); PLATELET COUNT 797 x10^3/uL (130-400); RED CELL DISTRIBUTION WIDTH 15.2 % (9.6-15.2)
[2017-11-06 06:45] LABS: BAND#(MANUAL) 0.64 x10^3/uL; BANDS%(MANUAL) 4 % (0-7); EOS#(MANUAL) 0.16 x10^3/uL (0.0-0.4); EOS% (MANUAL) 1 % (1-7); METAMYELOCYTES# (MANUAL) 0.16 x10^3/uL (0-0); METAMYELOCYTES% (MANUAL) 1 % (0-1); MONOS#(MANUAL) 0.64 x10^3/uL (0.3-2.7); MONOS% (MANUAL) 4 % (2-9)
[2017-11-06 06:46] LABS: <PLATELET ESTIMATE> INCREASED; <PLT MORPHOLOGY> NORMAL PLT MORPH; LYMPH#(MANUAL) 0.64 x10^3/uL (1-3.4); LYMPHS% (MANUAL) 4 % (22-44)
[2017-11-06 06:47] LABS: SEG#(MANUAL) 13.76 x10^3/uL (1.8-6.8); SEGS% (MANUAL) 86 % (42-75)
[2017-11-06 06:48] LABS: ANISOCYTOSIS 1+; POLYCHROMASIA 1+
[2017-11-06 06:49] LABS: STOMATOCYTES 1+
[2017-11-06] MEDS: METOLAZONE 2.5 MG TABLET PO SCH ×2 (07:30→17:19)
[2017-11-06] MEDS: SIMETHICONE 125 MG CHEW TAB PO SCH ×2 (08:00→13:16)
[2017-11-06] MEDS: INSULIN GLARGINE 100 UNITS/ML, PEN SQ-INSULIN SCH ×2 (09:00→21:14)
[2017-11-06] MEDS: FOLIC ACID 1 MG TABLET PO SCH (09:00)
[2017-11-06] MEDS: CITALOPRAM 20 MG TABLET PO SCH (09:51)
[2017-11-06] MEDS: POTASSIUM CHLORIDE 20 MEQ TAB.ER.PRT PO SCH ×2 (09:51→17:19)
[2017-11-06] MEDS: PANTOPRAZOLE 40 MG IV IVPush SCH (09:51)
[2017-11-06] MEDS: THIAMINE 100MG TABLET PO SCH (09:52)
[2017-11-06] MEDS ORDERED: METOLAZONE 5 MG TABLET ONE (17:12)
[2017-11-07] MEDS: FENTANYL PF 100 MCG/2ML IVPush PRN ×5 (00:53→21:30)
[2017-11-07] MEDS: ALBUTEROL/IPRATROPIUM 2.5MG/0.5MG, 3 ML INLINE SCH ×6 (03:19→22:29)
[2017-11-07] MEDS: ALBUMIN HUMAN 25% 100 ML IV SCH (03:33)
[2017-11-07] MEDS: CEFTAROLINE 600 MG in SODIUM CHLORIDE 0.9% 100 ML IV SCH ×3 (03:33→20:02)
[2017-11-07] MEDS: FUROSEMIDE 20 MG/2 ML IV SCH (04:37)
[2017-11-07 04:56] VITALS: BP 147/76
[2017-11-07] MEDS: INSULIN LISPRO 100 UNITS/ML, PEN SQ-INSULIN SCH ×6 (07:00→20:26)
[2017-11-07 07:59] LABS: ANION GAP 8 mmol/L (5-15); CHLORIDE 95 mmol/L (98-107); CREATININE 0.54 mg/dL (0.55-1.02)
[2017-11-07 08:00] LABS: ALANINE AMINOTRANSFERASE 42 U/L (12-78); ALBUMIN 4.4 g/dL (3.4-5.0)
[2017-11-07 08:01] LABS: BASOPHILS # (AUTO) 0.03 x10^3/uL (0-0.1); BASOPHILS % (AUTO) 0 % (0-1); EOSINOPHILS # (AUTO) 0.09 x10^3/uL (0-0.4); EOSINOPHILS % (AUTO) 1 % (1-7); LYMPHOCYTES # (AUTO) 1.28 x10^3/uL (1-3.4); LYMPHOCYTES % (AUTO) 9 % (22-44); MD NO; MEAN CORPUSCULAR HEMOGLOBIN 29.7 pg (27.0-34.8); MEAN CORPUSCULAR HGB CONC 33.1 g/dL (32.4-35.8); MEAN CORPUSCULAR VOLUME 89.6 fL (80-100); MEAN PLATELET VOLUME 7.7 fL (7.4-10.4); MONOCYTES % (AUTO) 7 % (2-9); NEUTROPHILS # (AUTO) 12.69 x10^3/uL (1.8-6.8); NEUTROPHILS % (AUTO) 84 % (42-75); PLATELET COUNT 946 x10^3/uL (130-400); RED BLOOD COUNT 3.35 x10^6/uL (3.82-5.3); RED CELL DISTRIBUTION WIDTH 15.6 % (9.6-15.2)
[2017-11-07 08:02] LABS: ALKALINE PHOSPHATASE 93 U/L (45-117); BILIRUBIN,TOTAL 0.7 mg/dL (0.2-1.0); TOTAL PROTEIN 9.1 g/dL (6.4-8.2)
[2017-11-07] MEDS ORDERED: METOLAZONE 5 MG TABLET ONE ×2 (08:36→16:30)
[2017-11-07] MEDS: PANTOPRAZOLE 40 MG IV IVPush SCH (08:45)
[2017-11-07] MEDS: THIAMINE 100MG TABLET PO SCH (08:46)
[2017-11-07] MEDS: METOLAZONE 2.5 MG TABLET PO SCH ×2 (08:46→17:20)
[2017-11-07] MEDS: POTASSIUM CHLORIDE 20 MEQ TAB.ER.PRT PO SCH ×2 (08:47→20:03)
[2017-11-07] MEDS: FOLIC ACID 1 MG TABLET PO SCH (08:47)
[2017-11-07] MEDS: CITALOPRAM 20 MG TABLET PO SCH (08:47)
[2017-11-07] MEDS: ENOXAPARIN 30 MG/0.3 ML SQ SCH ×2 (08:48→22:40)
[2017-11-07] MEDS: INSULIN GLARGINE 100 UNITS/ML, PEN SQ-INSULIN SCH ×2 (12:13→20:26)
[2017-11-07] MEDS ORDERED: FUROSEMIDE 20 MG/2 ML IV SCH (21:00)
[2017-11-08] MEDS: FENTANYL PF 100 MCG/2ML IVPush PRN ×5 (01:33→22:23)
[2017-11-08] MEDS: ALBUTEROL/IPRATROPIUM 2.5MG/0.5MG, 3 ML INLINE SCH ×6 (02:00→23:23)
[2017-11-08] MEDS: CEFTAROLINE 600 MG in SODIUM CHLORIDE 0.9% 100 ML IV SCH ×3 (04:22→21:22)
[2017-11-08 04:48] VITALS: BP 136/76
[2017-11-08 04:50] LABS: MEAN CORPUSCULAR HEMOGLOBIN 29.6 pg (27.0-34.8); MEAN CORPUSCULAR HGB CONC 33.1 g/dL (32.4-35.8); MEAN CORPUSCULAR VOLUME 89.4 fL (80-100); MEAN PLATELET VOLUME 7.7 fL (7.4-10.4); RED BLOOD COUNT 3.61 x10^6/uL (3.82-5.3); RED CELL DISTRIBUTION WIDTH 15.4 % (9.6-15.2)
[2017-11-08 04:53] LABS: PLATELET COUNT 1044 x10^3/uL (130-400)
[2017-11-08 04:59] LABS: ANION GAP 8 mmol/L (5-15); CALCIUM 9.4 mg/dL (8.5-10.1); CHLORIDE 96 mmol/L (98-107)
[2017-11-08 05:42] LABS: BASOPHILS # (AUTO) 0.04 x10^3/uL (0-0.1); BASOPHILS % (AUTO) 0 % (0-1); EOSINOPHILS # (AUTO) 0.18 x10^3/uL (0-0.4); EOSINOPHILS % (AUTO) 1 % (1-7); LYMPHOCYTES # (AUTO) 1.87 x10^3/uL (1-3.4); LYMPHOCYTES % (AUTO) 11 % (22-44); MD SCAN; MONOCYTES # (AUTO) 0.63 x10^3/uL (0.2-0.8); MONOCYTES % (AUTO) 4 % (2-9); NEUTROPHILS # (AUTO) 14.08 x10^3/uL (1.8-6.8); NEUTROPHILS % (AUTO) 84 % (42-75)
[2017-11-08] MEDS: INSULIN LISPRO 100 UNITS/ML, PEN SQ-INSULIN SCH ×4 (07:00→21:19)
[2017-11-08] MEDS: METOLAZONE 2.5 MG TABLET PO SCH ×2 (07:30→17:00)
[2017-11-08] MEDS ORDERED: METOLAZONE 5 MG TABLET ONE ×2 (08:46→17:53)
[2017-11-08] MEDS: THIAMINE 100MG TABLET PO SCH (08:50)
[2017-11-08] MEDS: FOLIC ACID 1 MG TABLET PO SCH (08:51)
[2017-11-08] MEDS: CITALOPRAM 20 MG TABLET PO SCH (08:52)
[2017-11-08] MEDS: FUROSEMIDE 20 MG/2 ML IV SCH ×2 (08:52→17:56)
[2017-11-08] MEDS: INSULIN GLARGINE 100 UNITS/ML, PEN SQ-INSULIN SCH ×2 (09:00→21:19)
[2017-11-08] MEDS: ENOXAPARIN 30 MG/0.3 ML SQ SCH ×2 (13:03→22:23)
[2017-11-08] MEDS ORDERED: ENOXAPARIN 30 MG/0.3 ML SQ SCH (22:00)
[2017-11-09] MEDS: FENTANYL PF 100 MCG/2ML IVPush PRN ×5 (01:37→17:07)
[2017-11-09] MEDS: ALBUTEROL/IPRATROPIUM 2.5MG/0.5MG, 3 ML INLINE SCH ×3 (03:10→10:00)
[2017-11-09 04:04] VITALS: BP 118/72
[2017-11-09 04:34] LABS: MEAN CORPUSCULAR HEMOGLOBIN 29.6 pg (27.0-34.8); MEAN CORPUSCULAR HGB CONC 33.2 g/dL (32.4-35.8); MEAN CORPUSCULAR VOLUME 89.2 fL (80-100); MEAN PLATELET VOLUME 7.4 fL (7.4-10.4); RED BLOOD COUNT 3.37 x10^6/uL (3.82-5.3); RED CELL DISTRIBUTION WIDTH 15.5 % (9.6-15.2)
[2017-11-09 04:38] LABS: PLATELET COUNT 1017 x10^3/uL (130-400)
[2017-11-09 04:43] LABS: ALBUMIN 3.6 g/dL (3.4-5.0); ANION GAP 9 mmol/L (5-15); CALCIUM 9.1 mg/dL (8.5-10.1); CHLORIDE 95 mmol/L (98-107)
[2017-11-09 04:48] LABS: ALANINE AMINOTRANSFERASE 25 U/L (12-78); ALKALINE PHOSPHATASE 84 U/L (45-117); BILIRUBIN,TOTAL 0.8 mg/dL (0.2-1.0); TOTAL PROTEIN 8.6 g/dL (6.4-8.2)
[2017-11-09 04:53] LABS: MD YES
[2017-11-09 04:55] LABS: ANISOCYTOSIS 1+; BANDS%(MANUAL) 3 % (0-7); LYMPH#(MANUAL) 1.68 x10^3/uL (1-3.4); LYMPHS% (MANUAL) 10 % (22-44); MONOS#(MANUAL) 0.84 x10^3/uL (0.3-2.7); MONOS% (MANUAL) 5 % (2-9); POLYCHROMASIA 1+; SEG#(MANUAL) 13.78 x10^3/uL (1.8-6.8); SEGS% (MANUAL) 82 % (42-75)
[2017-11-09 04:56] LABS: <PLATELET ESTIMATE> INCREASED; <PLT MORPHOLOGY> NORMAL PLT MORPH
[2017-11-09] MEDS: CEFTAROLINE 600 MG in SODIUM CHLORIDE 0.9% 100 ML IV SCH ×3 (05:11→21:32)
[2017-11-09] MEDS: GUAIFENESIN/COD200MG-20MG/10ML LIQUID PO PRN ×2 (08:13→16:59)
[2017-11-09] MEDS: FUROSEMIDE 20 MG/2 ML IV SCH ×2 (08:13→16:59)
[2017-11-09] MEDS: FOLIC ACID 1 MG TABLET PO SCH (08:14)
[2017-11-09] MEDS: CITALOPRAM 20 MG TABLET PO SCH (08:14)
[2017-11-09] MEDS: THIAMINE 100MG TABLET PO SCH (08:14)
[2017-11-09] MEDS: ENOXAPARIN 30 MG/0.3 ML SQ SCH ×2 (08:15→21:34)
[2017-11-09] MEDS ORDERED: METOLAZONE 5 MG TABLET ONE ×2 (08:16→16:53)
[2017-11-09] MEDS: METOLAZONE 2.5 MG TABLET PO SCH ×2 (08:18→16:59)
[2017-11-09] MEDS: INSULIN LISPRO 100 UNITS/ML, PEN SQ-INSULIN SCH ×4 (08:19→21:35)
[2017-11-09] MEDS: INSULIN GLARGINE 100 UNITS/ML, PEN SQ-INSULIN SCH ×2 (08:19→21:35)
[2017-11-09] MEDS ORDERED: OMNIPAQUE 350 MG/ML, 75ML BOTTLE ONE (09:50)
[2017-11-09] MEDS ORDERED: ALBUTEROL/IPRATROPIUM 2.5MG/0.5MG, 3 ML INLINE PRN (15:30)
[2017-11-09 19:14] VITALS: BP 128/72
[2017-11-09] MEDS ORDERED: ENOXAPARIN 30 MG/0.3 ML SQ SCH (21:00)
[2017-11-10 01:29] VITALS: BP 136/83
[2017-11-10] MEDS: GUAIFENESIN/COD200MG-20MG/10ML LIQUID PO PRN ×3 (03:36→20:16)
[2017-11-10] MEDS: OXYcodone/APAP 5/325MG TABLET PO PRN ×4 (03:36→21:20)
[2017-11-10] MEDS: CEFTAROLINE 600 MG in SODIUM CHLORIDE 0.9% 100 ML IV SCH ×3 (05:16→21:20)
[2017-11-10 05:57] LABS: MEAN CORPUSCULAR HGB CONC 33.5 g/dL (32.4-35.8); MEAN CORPUSCULAR VOLUME 89.5 fL (80-100); MEAN PLATELET VOLUME 7.4 fL (7.4-10.4); PLATELET COUNT 991 x10^3/uL (130-400); RED BLOOD COUNT 3.37 x10^6/uL (3.82-5.3); RED CELL DISTRIBUTION WIDTH 15.8 % (9.6-15.2)
[2017-11-10 06:06] LABS: ALBUMIN 3.6 g/dL (3.4-5.0); ANION GAP 10 mmol/L (5-15); CALCIUM 9.2 mg/dL (8.5-10.1); CHLORIDE 93 mmol/L (98-107)
[2017-11-10 06:10] LABS: ALANINE AMINOTRANSFERASE 22 U/L (12-78); ALKALINE PHOSPHATASE 82 U/L (45-117); BILIRUBIN,TOTAL 0.6 mg/dL (0.2-1.0); CREATININE 0.56 mg/dL (0.55-1.02); TOTAL PROTEIN 8.8 g/dL (6.4-8.2)
[2017-11-10 06:41] LABS: BASOPHILS # (AUTO) 0.07 x10^3/uL (0-0.1); BASOPHILS % (AUTO) 0 % (0-1); EOSINOPHILS # (AUTO) 0.22 x10^3/uL (0-0.4); EOSINOPHILS % (AUTO) 1 % (1-7); LYMPHOCYTES % (AUTO) 9 % (22-44); MD SCAN; MONOCYTES # (AUTO) 0.59 x10^3/uL (0.2-0.8); MONOCYTES % (AUTO) 3 % (2-9); NEUTROPHILS # (AUTO) 15.59 x10^3/uL (1.8-6.8); NEUTROPHILS % (AUTO) 86 % (42-75)
[2017-11-10] MEDS: INSULIN LISPRO 100 UNITS/ML, PEN SQ-INSULIN SCH ×4 (07:00→21:00)
[2017-11-10 07:07] VITALS: BP 116/81
[2017-11-10] MEDS: FOLIC ACID 1 MG TABLET PO SCH (08:06)
[2017-11-10] MEDS: METOLAZONE 2.5 MG TABLET PO SCH ×2 (08:06→16:43)
[2017-11-10] MEDS: ENOXAPARIN 30 MG/0.3 ML SQ SCH ×2 (08:07→21:20)
[2017-11-10] MEDS: THIAMINE 100MG TABLET PO SCH (08:07)
[2017-11-10] MEDS: CITALOPRAM 20 MG TABLET PO SCH (08:07)
[2017-11-10] MEDS: FUROSEMIDE 20 MG/2 ML IV SCH ×2 (08:08→16:42)
[2017-11-10] MEDS: INSULIN GLARGINE 100 UNITS/ML, PEN SQ-INSULIN SCH ×2 (08:08→21:21)
[2017-11-10] MEDS ORDERED: ALBUTEROL/IPRATROPIUM 2.5MG/0.5MG, 3 ML NPPB PRN (09:00)
[2017-11-10 12:10] VITALS: BP 113/68
[2017-11-10 19:22] VITALS: BP 118/69
[2017-11-10 22:26] VITALS: BP 145/67
[2017-11-11 01:20] VITALS: BP 114/71
[2017-11-11] MEDS: OXYcodone/APAP 5/325MG TABLET PO PRN ×3 (04:27→18:05)
[2017-11-11] MEDS: CEFTAROLINE 600 MG in SODIUM CHLORIDE 0.9% 100 ML IV SCH ×3 (05:40→20:26)
[2017-11-11 06:27] LABS: MEAN CORPUSCULAR HEMOGLOBIN 29.8 pg (27.0-34.8); MEAN CORPUSCULAR HGB CONC 33.7 g/dL (32.4-35.8); MEAN CORPUSCULAR VOLUME 88.4 fL (80-100); MEAN PLATELET VOLUME 7.4 fL (7.4-10.4); PLATELET COUNT 931 x10^3/uL (130-400); RED BLOOD COUNT 3.39 x10^6/uL (3.82-5.3); RED CELL DISTRIBUTION WIDTH 15.1 % (9.6-15.2)
[2017-11-11 06:37] LABS: ALANINE AMINOTRANSFERASE 22 U/L (12-78); ALBUMIN 3.5 g/dL (3.4-5.0); ANION GAP 7 mmol/L (5-15); CALCIUM 8.9 mg/dL (8.5-10.1); CHLORIDE 95 mmol/L (98-107); CREATININE 0.53 mg/dL (0.55-1.02)
[2017-11-11 06:40] LABS: ALKALINE PHOSPHATASE 88 U/L (45-117); BILIRUBIN,TOTAL 0.7 mg/dL (0.2-1.0); TOTAL PROTEIN 8.8 g/dL (6.4-8.2)
[2017-11-11 06:51] LABS: MD YES
[2017-11-11 06:53] LABS: ANISOCYTOSIS 1+; BAND#(MANUAL) 0.96 x10^3/uL; BANDS%(MANUAL) 6 % (0-7); LYMPH#(MANUAL) 1.44 x10^3/uL (1-3.4); LYMPHS% (MANUAL) 9 % (22-44); METAMYELOCYTES# (MANUAL) 0.48 x10^3/uL (0-0); METAMYELOCYTES% (MANUAL) 3 % (0-1); MONOS#(MANUAL) 0.64 x10^3/uL (0.3-2.7); MONOS% (MANUAL) 4 % (2-9); POLYCHROMASIA 1+; SEG#(MANUAL) 12.48 x10^3/uL (1.8-6.8); SEGS% (MANUAL) 78 % (42-75)
[2017-11-11 06:54] LABS: <PLATELET ESTIMATE> INCREASED; <PLT MORPHOLOGY> NORMAL PLT MORPH
[2017-11-11 07:41] VITALS: BP 123/73
[2017-11-11] MEDS: GUAIFENESIN/COD200MG-20MG/10ML LIQUID PO PRN ×2 (08:48→16:40)
[2017-11-11] MEDS: CITALOPRAM 20 MG TABLET PO SCH (08:48)
[2017-11-11] MEDS: ENOXAPARIN 30 MG/0.3 ML SQ SCH ×2 (08:48→20:26)
[2017-11-11] MEDS: FUROSEMIDE 20 MG/2 ML IV SCH ×2 (08:48→16:41)
[2017-11-11] MEDS: METOLAZONE 2.5 MG TABLET PO SCH ×2 (08:49→16:40)
[2017-11-11] MEDS: FOLIC ACID 1 MG TABLET PO SCH (08:49)
[2017-11-11] MEDS: THIAMINE 100MG TABLET PO SCH (08:49)
[2017-11-11] MEDS: INSULIN GLARGINE 100 UNITS/ML, PEN SQ-INSULIN SCH ×2 (08:49→20:28)
[2017-11-11] MEDS: INSULIN LISPRO 100 UNITS/ML, PEN SQ-INSULIN SCH ×4 (08:50→20:27)
[2017-11-11 13:56] VITALS: BP 124/80
[2017-11-11] MEDS ORDERED: POTASSIUM CHLORIDE 20 MEQ TAB.ER.PRT PO ONE ×2 (19:00→23:00)
[2017-11-11 20:03] VITALS: BP 130/79
[2017-11-12 01:34] VITALS: BP 118/75
[2017-11-12] MEDS: OXYcodone/APAP 5/325MG TABLET PO PRN ×4 (01:36→22:49)
[2017-11-12] MEDS: GUAIFENESIN/COD200MG-20MG/10ML LIQUID PO PRN ×2 (01:44→22:49)
[2017-11-12 05:08] LABS: BASOPHILS # (AUTO) 0.03 x10^3/uL (0-0.1); BASOPHILS % (AUTO) 0 % (0-1); EOSINOPHILS # (AUTO) 0.21 x10^3/uL (0-0.4); EOSINOPHILS % (AUTO) 2 % (1-7); LYMPHOCYTES # (AUTO) 1.17 x10^3/uL (1-3.4); LYMPHOCYTES % (AUTO) 9 % (22-44); MD NO; MEAN CORPUSCULAR HEMOGLOBIN 29.7 pg (27.0-34.8); MEAN CORPUSCULAR HGB CONC 33.4 g/dL (32.4-35.8); MEAN CORPUSCULAR VOLUME 88.9 fL (80-100); MEAN PLATELET VOLUME 7.5 fL (7.4-10.4); MONOCYTES # (AUTO) 0.56 x10^3/uL (0.2-0.8); MONOCYTES % (AUTO) 4 % (2-9); NEUTROPHILS # (AUTO) 11.24 x10^3/uL (1.8-6.8); NEUTROPHILS % (AUTO) 85 % (42-75); PLATELET COUNT 835 x10^3/uL (130-400); RED BLOOD COUNT 3.65 x10^6/uL (3.82-5.3); RED CELL DISTRIBUTION WIDTH 15.1 % (9.6-15.2)
[2017-11-12 05:18] LABS: ALBUMIN 3.5 g/dL (3.4-5.0); ANION GAP 6 mmol/L (5-15); CALCIUM 8.9 mg/dL (8.5-10.1); CHLORIDE 93 mmol/L (98-107)
[2017-11-12 05:22] LABS: ALANINE AMINOTRANSFERASE 21 U/L (12-78); ALKALINE PHOSPHATASE 86 U/L (45-117); BILIRUBIN,TOTAL 0.5 mg/dL (0.2-1.0); CREATININE 0.58 mg/dL (0.55-1.02)
[2017-11-12] MEDS: CEFTAROLINE 600 MG in SODIUM CHLORIDE 0.9% 100 ML IV SCH ×3 (05:37→21:45)
[2017-11-12] MEDS: INSULIN LISPRO 100 UNITS/ML, PEN SQ-INSULIN SCH ×4 (07:00→21:46)
[2017-11-12 08:10] VITALS: BP 135/83
[2017-11-12] MEDS: ENOXAPARIN 30 MG/0.3 ML SQ SCH ×2 (08:51→21:45)
[2017-11-12] MEDS: INSULIN GLARGINE 100 UNITS/ML, PEN SQ-INSULIN SCH ×2 (08:51→21:46)
[2017-11-12] MEDS: FOLIC ACID 1 MG TABLET PO SCH (08:52)
[2017-11-12] MEDS: CITALOPRAM 20 MG TABLET PO SCH (08:52)
[2017-11-12] MEDS: METOLAZONE 2.5 MG TABLET PO SCH ×2 (08:52→16:17)
[2017-11-12] MEDS: FUROSEMIDE 20 MG/2 ML IV SCH ×2 (08:53→16:17)
[2017-11-12] MEDS: THIAMINE 100MG TABLET PO SCH (09:02)
[2017-11-12 13:21] VITALS: BP 142/89
[2017-11-12] MEDS ORDERED: POTASSIUM CHLORIDE 20 MEQ TAB.ER.PRT PO ONE (17:00)
[2017-11-12 19:42] VITALS: BP 136/82
[2017-11-13 00:32] VITALS: BP 119/58
[2017-11-13] MEDS: CEFTAROLINE 600 MG in SODIUM CHLORIDE 0.9% 100 ML IV SCH ×3 (05:08→21:08)
[2017-11-13] MEDS: OXYcodone/APAP 5/325MG TABLET PO PRN ×4 (05:08→23:33)
[2017-11-13 05:24] LABS: BASOPHILS # (AUTO) 0.04 x10^3/uL (0-0.1); BASOPHILS % (AUTO) 0 % (0-1); EOSINOPHILS # (AUTO) 0.17 x10^3/uL (0-0.4); EOSINOPHILS % (AUTO) 2 % (1-7); LYMPHOCYTES # (AUTO) 1.56 x10^3/uL (1-3.4); LYMPHOCYTES % (AUTO) 14 % (22-44); MD NO; MEAN CORPUSCULAR HEMOGLOBIN 30.1 pg (27.0-34.8); MEAN CORPUSCULAR HGB CONC 34.2 g/dL (32.4-35.8); MEAN CORPUSCULAR VOLUME 87.9 fL (80-100); MEAN PLATELET VOLUME 7.8 fL (7.4-10.4); MONOCYTES # (AUTO) 0.75 x10^3/uL (0.2-0.8); MONOCYTES % (AUTO) 7 % (2-9); NEUTROPHILS % (AUTO) 77 % (42-75); PLATELET COUNT 792 x10^3/uL (130-400); RED BLOOD COUNT 3.49 x10^6/uL (3.82-5.3); RED CELL DISTRIBUTION WIDTH 15.5 % (9.6-15.2)
[2017-11-13 05:27] LABS: CHLORIDE 95 mmol/L (98-107)
[2017-11-13 05:34] LABS: ALANINE AMINOTRANSFERASE 22 U/L (12-78); ALBUMIN 3.5 g/dL (3.4-5.0); ALKALINE PHOSPHATASE 96 U/L (45-117); ANION GAP 8 mmol/L (5-15); BILIRUBIN,TOTAL 0.6 mg/dL (0.2-1.0); CALCIUM 9.2 mg/dL (8.5-10.1); CREATININE 0.55 mg/dL (0.55-1.02); TOTAL PROTEIN 9.2 g/dL (6.4-8.2)
[2017-11-13] MEDS: INSULIN LISPRO 100 UNITS/ML, PEN SQ-INSULIN SCH ×4 (07:00→21:09)
[2017-11-13 07:05] VITALS: BP 114/77
[2017-11-13] MEDS: CITALOPRAM 20 MG TABLET PO SCH (07:50)
[2017-11-13] MEDS: FOLIC ACID 1 MG TABLET PO SCH (07:50)
[2017-11-13] MEDS: ENOXAPARIN 30 MG/0.3 ML SQ SCH ×2 (07:50→21:08)
[2017-11-13] MEDS: INSULIN GLARGINE 100 UNITS/ML, PEN SQ-INSULIN SCH ×2 (07:51→21:09)
[2017-11-13] MEDS: THIAMINE 100MG TABLET PO SCH (07:51)
[2017-11-13] MEDS: ACETAMINOPHEN 325 MG TABLET PO PRN (09:42)
[2017-11-13 13:30] VITALS: BP 130/70
[2017-11-13 20:00] VITALS: BP 115/71
[2017-11-13] MEDS: GUAIFENESIN/COD200MG-20MG/10ML LIQUID PO PRN (21:09)
[2017-11-14 02:00] VITALS: BP 135/70
[2017-11-14] MEDS: CEFTAROLINE 600 MG in SODIUM CHLORIDE 0.9% 100 ML IV SCH ×3 (05:13→21:21)
[2017-11-14 06:20] LABS: BASOPHILS # (AUTO) 0.02 x10^3/uL (0-0.1); BASOPHILS % (AUTO) 0 % (0-1); EOSINOPHILS # (AUTO) 0.19 x10^3/uL (0-0.4); EOSINOPHILS % (AUTO) 2 % (1-7); LYMPHOCYTES # (AUTO) 1.78 x10^3/uL (1-3.4); LYMPHOCYTES % (AUTO) 16 % (22-44); MD NO; MEAN CORPUSCULAR HEMOGLOBIN 29.3 pg (27.0-34.8); MEAN CORPUSCULAR HGB CONC 33.2 g/dL (32.4-35.8); MEAN CORPUSCULAR VOLUME 88.3 fL (80-100); MEAN PLATELET VOLUME 7.3 fL (7.4-10.4); MONOCYTES # (AUTO) 0.78 x10^3/uL (0.2-0.8); MONOCYTES % (AUTO) 7 % (2-9); NEUTROPHILS # (AUTO) 8.65 x10^3/uL (1.8-6.8); NEUTROPHILS % (AUTO) 76 % (42-75); PLATELET COUNT 768 x10^3/uL (130-400); RED CELL DISTRIBUTION WIDTH 15.6 % (9.6-15.2)
[2017-11-14 06:21] LABS: HCT (SEDRATE) 32.7 % (34.6-47.8)
[2017-11-14 06:31] LABS: CHLORIDE 95 mmol/L (98-107)
[2017-11-14 06:45] LABS: ALANINE AMINOTRANSFERASE 22 U/L (12-78); ALBUMIN 3.6 g/dL (3.4-5.0); ALKALINE PHOSPHATASE 93 U/L (45-117); ANION GAP 9 mmol/L (5-15); BILIRUBIN,TOTAL 0.4 mg/dL (0.2-1.0); CREATININE 0.45 mg/dL (0.55-1.02); TOTAL PROTEIN 9.4 g/dL (6.4-8.2)
[2017-11-14 07:32] VITALS: BP 120/57
[2017-11-14] MEDS: OXYcodone/APAP 5/325MG TABLET PO PRN ×3 (08:15→22:22)
[2017-11-14] MEDS: ENOXAPARIN 30 MG/0.3 ML SQ SCH ×2 (08:16→21:21)
[2017-11-14] MEDS: CITALOPRAM 20 MG TABLET PO SCH (08:16)
[2017-11-14] MEDS: FOLIC ACID 1 MG TABLET PO SCH (08:16)
[2017-11-14] MEDS: INSULIN GLARGINE 100 UNITS/ML, PEN SQ-INSULIN SCH ×2 (08:17→21:22)
[2017-11-14] MEDS: INSULIN LISPRO 100 UNITS/ML, PEN SQ-INSULIN SCH ×4 (08:17→21:22)
[2017-11-14] MEDS: THIAMINE 100MG TABLET PO SCH (08:17)
[2017-11-14 13:27] VITALS: BP 118/72
[2017-11-14] MEDS: GUAIFENESIN/COD200MG-20MG/10ML LIQUID PO PRN (19:32)
[2017-11-14 20:00] VITALS: BP 134/82
[2017-11-15 02:27] VITALS: BP 129/68
[2017-11-15] MEDS: CEFTAROLINE 600 MG in SODIUM CHLORIDE 0.9% 100 ML IV SCH ×3 (05:13→21:06)
[2017-11-15 05:58] LABS: BASOPHILS # (AUTO) 0.04 x10^3/uL (0-0.1); BASOPHILS % (AUTO) 0 % (0-1); EOSINOPHILS # (AUTO) 0.18 x10^3/uL (0-0.4); EOSINOPHILS % (AUTO) 2 % (1-7); LYMPHOCYTES # (AUTO) 1.38 x10^3/uL (1-3.4); LYMPHOCYTES % (AUTO) 15 % (22-44); MD NO; MEAN CORPUSCULAR HEMOGLOBIN 29.2 pg (27.0-34.8); MEAN CORPUSCULAR HGB CONC 32.8 g/dL (32.4-35.8); MEAN CORPUSCULAR VOLUME 89.2 fL (80-100); MEAN PLATELET VOLUME 7.2 fL (7.4-10.4); MONOCYTES # (AUTO) 0.79 x10^3/uL (0.2-0.8); MONOCYTES % (AUTO) 9 % (2-9); NEUTROPHILS # (AUTO) 6.94 x10^3/uL (1.8-6.8); NEUTROPHILS % (AUTO) 74 % (42-75); PLATELET COUNT 670 x10^3/uL (130-400); RED BLOOD COUNT 3.28 x10^6/uL (3.82-5.3); RED CELL DISTRIBUTION WIDTH 15.8 % (9.6-15.2)
[2017-11-15 06:08] LABS: ALBUMIN 3.1 g/dL (3.4-5.0); ANION GAP 6 mmol/L (5-15); CALCIUM 8.8 mg/dL (8.5-10.1); CHLORIDE 98 mmol/L (98-107)
[2017-11-15 06:11] LABS: ALANINE AMINOTRANSFERASE 21 U/L (12-78); ALKALINE PHOSPHATASE 82 U/L (45-117); BILIRUBIN,TOTAL 0.4 mg/dL (0.2-1.0); CREATININE 0.47 mg/dL (0.55-1.02); TOTAL PROTEIN 8.3 g/dL (6.4-8.2)
[2017-11-15] MEDS: INSULIN LISPRO 100 UNITS/ML, PEN SQ-INSULIN SCH ×4 (07:00→21:06)
[2017-11-15 07:48] VITALS: BP 109/71
[2017-11-15] MEDS: FOLIC ACID 1 MG TABLET PO SCH (09:18)
[2017-11-15] MEDS: ENOXAPARIN 30 MG/0.3 ML SQ SCH ×2 (09:19→21:05)
[2017-11-15] MEDS: INSULIN GLARGINE 100 UNITS/ML, PEN SQ-INSULIN SCH ×2 (09:19→21:06)
[2017-11-15] MEDS: CITALOPRAM 20 MG TABLET PO SCH (09:19)
[2017-11-15] MEDS: OXYcodone/APAP 5/325MG TABLET PO PRN ×2 (09:19→15:42)
[2017-11-15] MEDS: THIAMINE 100MG TABLET PO SCH (09:19)
[2017-11-15 13:05] VITALS: BP 124/75
[2017-11-15 20:00] VITALS: BP 123/66
[2017-11-15] MEDS: GUAIFENESIN/COD200MG-20MG/10ML LIQUID PO PRN (22:39)
[2017-11-16 02:00] VITALS: BP 148/84
[2017-11-16] MEDS: OXYcodone/APAP 5/325MG TABLET PO PRN ×4 (02:19→23:10)
[2017-11-16] MEDS: CEFTAROLINE 600 MG in SODIUM CHLORIDE 0.9% 100 ML IV SCH ×3 (05:16→21:19)
[2017-11-16] MEDS: INSULIN LISPRO 100 UNITS/ML, PEN SQ-INSULIN SCH ×4 (07:00→21:00)
[2017-11-16 07:50] VITALS: BP 102/68
[2017-11-16] MEDS: CITALOPRAM 20 MG TABLET PO SCH (08:00)
[2017-11-16] MEDS: FOLIC ACID 1 MG TABLET PO SCH (08:00)
[2017-11-16] MEDS: THIAMINE 100MG TABLET PO SCH (08:00)
[2017-11-16] MEDS: INSULIN GLARGINE 100 UNITS/ML, PEN SQ-INSULIN SCH ×2 (08:00→21:19)
[2017-11-16] MEDS: ENOXAPARIN 30 MG/0.3 ML SQ SCH ×2 (08:01→21:19)
[2017-11-16 13:59] VITALS: BP 141/79
[2017-11-16] MEDS: GUAIFENESIN/COD200MG-20MG/10ML LIQUID PO PRN (16:33)
[2017-11-16 19:20] VITALS: BP 116/61
[2017-11-17 02:53] VITALS: BP 141/76
[2017-11-17] MEDS: CEFTAROLINE 600 MG in SODIUM CHLORIDE 0.9% 100 ML IV SCH ×3 (05:01→23:18)
[2017-11-17 06:55] VITALS: BP 144/86
[2017-11-17] MEDS: INSULIN LISPRO 100 UNITS/ML, PEN SQ-INSULIN SCH ×4 (08:40→20:54)
[2017-11-17] MEDS: CITALOPRAM 20 MG TABLET PO SCH (08:41)
[2017-11-17] MEDS: OXYcodone/APAP 5/325MG TABLET PO PRN ×3 (08:41→23:24)
[2017-11-17] MEDS: THIAMINE 100MG TABLET PO SCH (08:41)
[2017-11-17] MEDS: FOLIC ACID 1 MG TABLET PO SCH (08:41)
[2017-11-17] MEDS: INSULIN GLARGINE 100 UNITS/ML, PEN SQ-INSULIN SCH ×2 (08:42→20:54)
[2017-11-17] MEDS: ENOXAPARIN 30 MG/0.3 ML SQ SCH ×2 (08:42→20:53)
[2017-11-17 12:10] VITALS: BP 114/65
[2017-11-17 19:35] VITALS: BP 121/67
[2017-11-18 01:49] VITALS: BP 135/81
[2017-11-18] MEDS: INSULIN LISPRO 100 UNITS/ML, PEN SQ-INSULIN SCH ×4 (07:47→20:58)
[2017-11-18 08:00] VITALS: BP 123/67
[2017-11-18] MEDS: CEFTAROLINE 600 MG in SODIUM CHLORIDE 0.9% 100 ML IV SCH ×3 (08:00→18:01)
[2017-11-18] MEDS: THIAMINE 100MG TABLET PO SCH (08:10)
[2017-11-18] MEDS: ENOXAPARIN 30 MG/0.3 ML SQ SCH ×2 (08:10→20:02)
[2017-11-18] MEDS: INSULIN GLARGINE 100 UNITS/ML, PEN SQ-INSULIN SCH ×2 (08:10→20:59)
[2017-11-18] MEDS: FOLIC ACID 1 MG TABLET PO SCH (08:11)
[2017-11-18] MEDS: CITALOPRAM 20 MG TABLET PO SCH (08:11)
[2017-11-18] MEDS: OXYcodone/APAP 5/325MG TABLET PO PRN ×2 (10:06→18:02)
[2017-11-18 14:30] VITALS: BP 112/67
[2017-11-18] MEDS ORDERED: ALBUTEROL SULFATE 2.5 MG/3 ML NPPB ONE (16:35)
[2017-11-18 21:25] VITALS: BP 128/73
[2017-11-19] MEDS: OXYcodone/APAP 5/325MG TABLET PO PRN ×3 (00:17→18:22)
[2017-11-19 01:19] VITALS: BP 129/82
[2017-11-19] MEDS: CEFTAROLINE 600 MG in SODIUM CHLORIDE 0.9% 100 ML IV SCH ×3 (01:34→18:22)
[2017-11-19 05:10] LABS: HCT (SEDRATE) 30.7 % (34.6-47.8)
[2017-11-19 07:54] VITALS: BP 134/79
[2017-11-19] MEDS: INSULIN LISPRO 100 UNITS/ML, PEN SQ-INSULIN SCH ×4 (08:13→20:23)
[2017-11-19 08:20] LABS: BASOPHILS # (AUTO) 0.02 x10^3/uL (0-0.1); BASOPHILS % (AUTO) 0 % (0-1); EOSINOPHILS # (AUTO) 0.15 x10^3/uL (0-0.4); EOSINOPHILS % (AUTO) 2 % (1-7); LYMPHOCYTES # (AUTO) 1.37 x10^3/uL (1-3.4); LYMPHOCYTES % (AUTO) 19 % (22-44); MD NO; MEAN CORPUSCULAR HEMOGLOBIN 29.5 pg (27.0-34.8); MEAN CORPUSCULAR HGB CONC 33.1 g/dL (32.4-35.8); MEAN CORPUSCULAR VOLUME 89.2 fL (80-100); MEAN PLATELET VOLUME 7.8 fL (7.4-10.4); MONOCYTES # (AUTO) 0.75 x10^3/uL (0.2-0.8); MONOCYTES % (AUTO) 10 % (2-9); NEUTROPHILS % (AUTO) 69 % (42-75); PLATELET COUNT 461 x10^3/uL (130-400); RED BLOOD COUNT 3.39 x10^6/uL (3.82-5.3)
[2017-11-19 08:39] LABS: ALANINE AMINOTRANSFERASE 22 U/L (12-78); ALBUMIN 3.2 g/dL (3.4-5.0); ANION GAP 8 mmol/L (5-15); CALCIUM 8.9 mg/dL (8.5-10.1); CHLORIDE 102 mmol/L (98-107); CREATININE 0.53 mg/dL (0.55-1.02)
[2017-11-19 08:41] LABS: ALKALINE PHOSPHATASE 75 U/L (45-117); BILIRUBIN,TOTAL 0.3 mg/dL (0.2-1.0); TOTAL PROTEIN 8.4 g/dL (6.4-8.2)
[2017-11-19] MEDS: CITALOPRAM 20 MG TABLET PO SCH (08:56)
[2017-11-19] MEDS: FOLIC ACID 1 MG TABLET PO SCH (08:56)
[2017-11-19] MEDS: ENOXAPARIN 30 MG/0.3 ML SQ SCH ×2 (08:56→20:14)
[2017-11-19] MEDS: INSULIN GLARGINE 100 UNITS/ML, PEN SQ-INSULIN SCH ×2 (08:57→20:22)
[2017-11-19] MEDS: THIAMINE 100MG TABLET PO SCH (11:27)
[2017-11-19 16:32] VITALS: BP 136/74
[2017-11-19 18:39] VITALS: BP 130/53
[2017-11-19 19:33] LABS: BASOPHILS # (AUTO) 0.04 x10^3/uL (0-0.1); BASOPHILS % (AUTO) 1 % (0-1); EOSINOPHILS # (AUTO) 0.13 x10^3/uL (0-0.4); EOSINOPHILS % (AUTO) 2 % (1-7); LYMPHOCYTES # (AUTO) 1.34 x10^3/uL (1-3.4); LYMPHOCYTES % (AUTO) 18 % (22-44); MD NO; MEAN CORPUSCULAR HEMOGLOBIN 29.8 pg (27.0-34.8); MEAN CORPUSCULAR HGB CONC 33.6 g/dL (32.4-35.8); MEAN CORPUSCULAR VOLUME 88.9 fL (80-100); MEAN PLATELET VOLUME 7.1 fL (7.4-10.4); MONOCYTES # (AUTO) 0.66 x10^3/uL (0.2-0.8); MONOCYTES % (AUTO) 9 % (2-9); NEUTROPHILS # (AUTO) 5.45 x10^3/uL (1.8-6.8); NEUTROPHILS % (AUTO) 72 % (42-75); PLATELET COUNT 475 x10^3/uL (130-400); RED BLOOD COUNT 3.17 x10^6/uL (3.82-5.3); RED CELL DISTRIBUTION WIDTH 16.1 % (9.6-15.2)
[2017-11-20] MEDS: OXYcodone/APAP 5/325MG TABLET PO PRN ×4 (00:57→21:42)
[2017-11-20 01:01] VITALS: BP 154/90
[2017-11-20] MEDS: CEFTAROLINE 600 MG in SODIUM CHLORIDE 0.9% 100 ML IV SCH ×3 (01:47→17:46)
[2017-11-20] MEDS: INSULIN LISPRO 100 UNITS/ML, PEN SQ-INSULIN SCH ×4 (07:00→21:44)
[2017-11-20 08:14] VITALS: BP 118/70
[2017-11-20] MEDS: CITALOPRAM 20 MG TABLET PO SCH (09:26)
[2017-11-20] MEDS: THIAMINE 100MG TABLET PO SCH (09:27)
[2017-11-20] MEDS: FOLIC ACID 1 MG TABLET PO SCH (09:31)
[2017-11-20] MEDS: ENOXAPARIN 30 MG/0.3 ML SQ SCH ×2 (09:32→21:43)
[2017-11-20] MEDS: INSULIN GLARGINE 100 UNITS/ML, PEN SQ-INSULIN SCH ×2 (09:33→21:43)
[2017-11-20 14:02] VITALS: BP 125/71
[2017-11-20 19:45] VITALS: BP 116/62
[2017-11-20] MEDS: ATORVASTATIN 40 MG TABLET PO SCH (21:42)
[2017-11-21 01:50] VITALS: BP 110/60
[2017-11-21] MEDS: GUAIFENESIN/COD200MG-20MG/10ML LIQUID PO PRN ×4 (02:13→20:18)
[2017-11-21] MEDS: CEFTAROLINE 600 MG in SODIUM CHLORIDE 0.9% 100 ML IV SCH ×3 (02:13→18:23)
[2017-11-21] MEDS: OXYcodone/APAP 5/325MG TABLET PO PRN ×3 (06:20→18:23)
[2017-11-21] MEDS: INSULIN LISPRO 100 UNITS/ML, PEN SQ-INSULIN SCH ×4 (07:00→20:19)
[2017-11-21 08:14] VITALS: BP 102/61
[2017-11-21] MEDS: FOLIC ACID 1 MG TABLET PO SCH (08:58)
[2017-11-21] MEDS: INSULIN GLARGINE 100 UNITS/ML, PEN SQ-INSULIN SCH ×2 (08:58→20:33)
[2017-11-21] MEDS: THIAMINE 100MG TABLET PO SCH (08:58)
[2017-11-21] MEDS: ASPIRIN 81 MG TABLET CHEW PO SCH (08:58)
[2017-11-21] MEDS: CITALOPRAM 20 MG TABLET PO SCH (08:58)
[2017-11-21] MEDS: ENOXAPARIN 30 MG/0.3 ML SQ SCH ×2 (10:17→20:18)
[2017-11-21 14:42] VITALS: BP 108/67
[2017-11-21 18:50] VITALS: BP 116/67
[2017-11-21] MEDS: ATORVASTATIN 40 MG TABLET PO SCH (20:18)
[2017-11-22] MEDS: OXYcodone/APAP 5/325MG TABLET PO PRN ×4 (00:29→20:23)
[2017-11-22 01:52] VITALS: BP 112/79
[2017-11-22] MEDS: CEFTAROLINE 600 MG in SODIUM CHLORIDE 0.9% 100 ML IV SCH ×3 (02:33→18:32)
[2017-11-22] MEDS: INSULIN LISPRO 100 UNITS/ML, PEN SQ-INSULIN SCH ×4 (07:00→20:24)
[2017-11-22] MEDS: ENOXAPARIN 30 MG/0.3 ML SQ SCH ×2 (08:10→20:23)
[2017-11-22] MEDS: ASPIRIN 81 MG TABLET CHEW PO SCH (08:11)
[2017-11-22] MEDS: CITALOPRAM 20 MG TABLET PO SCH (08:11)
[2017-11-22] MEDS: INSULIN GLARGINE 100 UNITS/ML, PEN SQ-INSULIN SCH ×2 (08:11→20:23)
[2017-11-22] MEDS: GUAIFENESIN/COD200MG-20MG/10ML LIQUID PO PRN ×3 (08:11→23:39)
[2017-11-22] MEDS: FOLIC ACID 1 MG TABLET PO SCH (08:11)
[2017-11-22] MEDS: THIAMINE 100MG TABLET PO SCH (08:13)
[2017-11-22 08:40] VITALS: BP 107/71
[2017-11-22 13:45] VITALS: BP 102/60
[2017-11-22 19:14] VITALS: BP 116/70
[2017-11-22] MEDS: ATORVASTATIN 40 MG TABLET PO SCH (20:23)
[2017-11-23 00:58] VITALS: BP 125/75
[2017-11-23] MEDS: OXYcodone/APAP 5/325MG TABLET PO PRN ×3 (04:34→20:07)
[2017-11-23] MEDS: CEFTAROLINE 600 MG in SODIUM CHLORIDE 0.9% 100 ML IV SCH ×3 (04:34→22:28)
[2017-11-23] MEDS: INSULIN LISPRO 100 UNITS/ML, PEN SQ-INSULIN SCH ×4 (07:00→22:29)
[2017-11-23 07:20] VITALS: BP 132/78
[2017-11-23] MEDS: THIAMINE 100MG TABLET PO SCH (08:23)
[2017-11-23] MEDS: ASPIRIN 81 MG TABLET CHEW PO SCH (08:24)
[2017-11-23] MEDS: FOLIC ACID 1 MG TABLET PO SCH (08:24)
[2017-11-23] MEDS: CITALOPRAM 20 MG TABLET PO SCH (08:24)
[2017-11-23] MEDS: ENOXAPARIN 30 MG/0.3 ML SQ SCH ×2 (08:43→22:28)
[2017-11-23] MEDS: INSULIN GLARGINE 100 UNITS/ML, PEN SQ-INSULIN SCH ×2 (08:44→22:29)
[2017-11-23] MEDS ORDERED: OMNIPAQUE 350 MG/ML, 100ML BOTTLE ONE (11:03)
[2017-11-23 13:45] VITALS: BP 111/66
[2017-11-23] MEDS: GUAIFENESIN/COD200MG-20MG/10ML LIQUID PO PRN (16:39)
[2017-11-23 20:07] VITALS: BP 131/73
[2017-11-23] MEDS: ATORVASTATIN 40 MG TABLET PO SCH (22:28)
[2017-11-24 01:30] VITALS: BP 128/70
[2017-11-24] MEDS: OXYcodone/APAP 5/325MG TABLET PO PRN ×4 (01:47→23:11)
[2017-11-24] MEDS: GUAIFENESIN/COD200MG-20MG/10ML LIQUID PO PRN (06:42)
[2017-11-24] MEDS: CEFTAROLINE 600 MG in SODIUM CHLORIDE 0.9% 100 ML IV SCH ×3 (06:42→23:05)
[2017-11-24] MEDS: INSULIN LISPRO 100 UNITS/ML, PEN SQ-INSULIN SCH ×4 (07:00→20:38)
[2017-11-24 07:32] VITALS: BP 119/72
[2017-11-24] MEDS: ENOXAPARIN 30 MG/0.3 ML SQ SCH ×2 (09:47→20:37)
[2017-11-24] MEDS: FOLIC ACID 1 MG TABLET PO SCH (09:47)
[2017-11-24] MEDS: THIAMINE 100MG TABLET PO SCH (09:47)
[2017-11-24] MEDS: CITALOPRAM 20 MG TABLET PO SCH (09:47)
[2017-11-24] MEDS: ASPIRIN 81 MG TABLET CHEW PO SCH (09:47)
[2017-11-24] MEDS: INSULIN GLARGINE 100 UNITS/ML, PEN SQ-INSULIN SCH ×2 (09:48→20:39)
[2017-11-24 13:02] VITALS: BP 116/66
[2017-11-24] MEDS ORDERED: LIDOCAINE-MPF 1%, 2ML ONE (16:26)
[2017-11-24] MEDS: ATORVASTATIN 40 MG TABLET PO SCH (20:37)
[2017-11-24 22:06] VITALS: BP 135/74
[2017-11-25 01:38] VITALS: BP 129/70
[2017-11-25] MEDS: INSULIN LISPRO 100 UNITS/ML, PEN SQ-INSULIN SCH ×4 (07:00→20:42)
[2017-11-25 07:40] VITALS: BP 152/82
[2017-11-25] MEDS: CEFTAROLINE 600 MG in SODIUM CHLORIDE 0.9% 100 ML IV SCH ×2 (07:54→16:40)
[2017-11-25] MEDS: GUAIFENESIN/COD200MG-20MG/10ML LIQUID PO PRN ×3 (08:13→20:42)
[2017-11-25] MEDS: THIAMINE 100MG TABLET PO SCH (08:13)
[2017-11-25] MEDS: FOLIC ACID 1 MG TABLET PO SCH (08:13)
[2017-11-25] MEDS: ASPIRIN 81 MG TABLET CHEW PO SCH (08:13)
[2017-11-25] MEDS: CITALOPRAM 20 MG TABLET PO SCH (08:13)
[2017-11-25] MEDS: OXYcodone/APAP 5/325MG TABLET PO PRN ×3 (08:13→20:42)
[2017-11-25] MEDS: ENOXAPARIN 30 MG/0.3 ML SQ SCH ×2 (09:12→20:42)
[2017-11-25] MEDS: INSULIN GLARGINE 100 UNITS/ML, PEN SQ-INSULIN SCH ×2 (09:13→20:42)
[2017-11-25] MEDS ORDERED: GUAIFENESIN/COD200MG-20MG/10ML LIQUID PO PRN (11:30)
[2017-11-25 13:14] VITALS: BP 104/64
[2017-11-25 19:45] VITALS: BP 103/64
[2017-11-25] MEDS: ATORVASTATIN 40 MG TABLET PO SCH (20:42)
[2017-11-26 00:42] VITALS: BP 123/68
[2017-11-26] MEDS: CEFTAROLINE 600 MG in SODIUM CHLORIDE 0.9% 100 ML IV SCH ×3 (00:58→17:55)
[2017-11-26] MEDS: INSULIN LISPRO 100 UNITS/ML, PEN SQ-INSULIN SCH ×4 (07:00→20:09)
[2017-11-26 07:51] VITALS: BP 105/66
[2017-11-26] MEDS: ENOXAPARIN 30 MG/0.3 ML SQ SCH ×2 (09:47→20:08)
[2017-11-26] MEDS: INSULIN GLARGINE 100 UNITS/ML, PEN SQ-INSULIN SCH ×2 (09:48→20:10)
[2017-11-26] MEDS: CITALOPRAM 20 MG TABLET PO SCH (09:49)
[2017-11-26] MEDS: FOLIC ACID 1 MG TABLET PO SCH (09:49)
[2017-11-26] MEDS: ASPIRIN 81 MG TABLET CHEW PO SCH (09:49)
[2017-11-26] MEDS: THIAMINE 100MG TABLET PO SCH (09:49)
[2017-11-26] MEDS: OXYcodone/APAP 5/325MG TABLET PO PRN ×3 (10:33→22:41)
[2017-11-26 13:22] VITALS: BP 105/65
[2017-11-26] MEDS: GUAIFENESIN/COD200MG-20MG/10ML LIQUID PO PRN (15:36)
[2017-11-26 20:00] VITALS: BP 121/66
[2017-11-26] MEDS: ATORVASTATIN 40 MG TABLET PO SCH (20:08)
[2017-11-27] MEDS: CEFTAROLINE 600 MG in SODIUM CHLORIDE 0.9% 100 ML IV SCH ×3 (01:51→17:04)
[2017-11-27] MEDS: GUAIFENESIN/COD200MG-20MG/10ML LIQUID PO PRN ×3 (01:51→21:40)
[2017-11-27 02:00] VITALS: BP 112/64
[2017-11-27] MEDS: INSULIN LISPRO 100 UNITS/ML, PEN SQ-INSULIN SCH ×4 (07:00→20:32)
[2017-11-27 07:44] VITALS: BP 106/60
[2017-11-27] MEDS: THIAMINE 100MG TABLET PO SCH (08:07)
[2017-11-27] MEDS: OXYcodone/APAP 5/325MG TABLET PO PRN ×3 (08:07→20:43)
[2017-11-27] MEDS: ASPIRIN 81 MG TABLET CHEW PO SCH (08:07)
[2017-11-27] MEDS: FOLIC ACID 1 MG TABLET PO SCH (08:07)
[2017-11-27] MEDS: CITALOPRAM 20 MG TABLET PO SCH (08:07)
[2017-11-27] MEDS: ENOXAPARIN 30 MG/0.3 ML SQ SCH ×2 (08:08→20:32)
[2017-11-27] MEDS: INSULIN GLARGINE 100 UNITS/ML, PEN SQ-INSULIN SCH ×2 (08:08→20:33)
[2017-11-27 14:10] VITALS: BP 112/60
[2017-11-27 20:00] VITALS: BP 139/72
[2017-11-27] MEDS: ATORVASTATIN 40 MG TABLET PO SCH (20:32)
[2017-11-28] MEDS: CEFTAROLINE 600 MG in SODIUM CHLORIDE 0.9% 100 ML IV SCH ×3 (00:59→16:30)
[2017-11-28 01:03] VITALS: BP 104/58
[2017-11-28] MEDS: GUAIFENESIN/COD200MG-20MG/10ML LIQUID PO PRN ×3 (03:41→20:53)
[2017-11-28] MEDS: OXYcodone/APAP 5/325MG TABLET PO PRN ×4 (03:41→22:59)
[2017-11-28] MEDS: INSULIN LISPRO 100 UNITS/ML, PEN SQ-INSULIN SCH ×4 (07:00→20:54)
[2017-11-28 07:13] VITALS: BP 108/69
[2017-11-28] MEDS: CITALOPRAM 20 MG TABLET PO SCH (08:15)
[2017-11-28] MEDS: THIAMINE 100MG TABLET PO SCH (08:15)
[2017-11-28] MEDS: ASPIRIN 81 MG TABLET CHEW PO SCH (08:15)
[2017-11-28] MEDS: FOLIC ACID 1 MG TABLET PO SCH (08:15)
[2017-11-28] MEDS: ENOXAPARIN 30 MG/0.3 ML SQ SCH ×2 (08:15→20:53)
[2017-11-28] MEDS: INSULIN GLARGINE 100 UNITS/ML, PEN SQ-INSULIN SCH ×2 (08:16→20:55)
[2017-11-28 12:45] VITALS: BP 104/62
[2017-11-28 18:32] VITALS: BP 99/61
[2017-11-28] MEDS: ATORVASTATIN 40 MG TABLET PO SCH (20:53)
[2017-11-29] MEDS: CEFTAROLINE 600 MG in SODIUM CHLORIDE 0.9% 100 ML IV SCH ×3 (00:50→16:55)
[2017-11-29 02:55] VITALS: BP 111/67
[2017-11-29] MEDS: GUAIFENESIN/COD200MG-20MG/10ML LIQUID PO PRN ×3 (02:59→21:20)
[2017-11-29 03:15] LABS: BASOPHILS # (AUTO) 0.03 x10^3/uL (0-0.1); BASOPHILS % (AUTO) 1 % (0-1); EOSINOPHILS # (AUTO) 0.09 x10^3/uL (0-0.4); EOSINOPHILS % (AUTO) 2 % (1-7); LYMPHOCYTES # (AUTO) 1.62 x10^3/uL (1-3.4); LYMPHOCYTES % (AUTO) 33 % (22-44); MD NO; MEAN CORPUSCULAR HEMOGLOBIN 29.5 pg (27.0-34.8); MEAN CORPUSCULAR HGB CONC 33.3 g/dL (32.4-35.8); MEAN CORPUSCULAR VOLUME 88.7 fL (80-100); MEAN PLATELET VOLUME 7.5 fL (7.4-10.4); MONOCYTES # (AUTO) 0.52 x10^3/uL (0.2-0.8); MONOCYTES % (AUTO) 11 % (2-9); NEUTROPHILS % (AUTO) 54 % (42-75); PLATELET COUNT 321 x10^3/uL (130-400); RED BLOOD COUNT 3.29 x10^6/uL (3.82-5.3); RED CELL DISTRIBUTION WIDTH 15.7 % (9.6-15.2)
[2017-11-29 03:27] LABS: ALANINE AMINOTRANSFERASE 21 U/L (12-78); ALBUMIN 3.2 g/dL (3.4-5.0); ANION GAP 5 mmol/L (5-15); CALCIUM 8.9 mg/dL (8.5-10.1); CHLORIDE 103 mmol/L (98-107); CREATININE 0.45 mg/dL (0.55-1.02)
[2017-11-29 03:30] LABS: ALKALINE PHOSPHATASE 66 U/L (45-117); BILIRUBIN,TOTAL 0.2 mg/dL (0.2-1.0)
[2017-11-29] MEDS: OXYcodone/APAP 5/325MG TABLET PO PRN ×4 (04:59→23:49)
[2017-11-29 07:06] VITALS: BP 106/64
[2017-11-29] MEDS: CITALOPRAM 20 MG TABLET PO SCH (07:50)
[2017-11-29] MEDS: FOLIC ACID 1 MG TABLET PO SCH (07:51)
[2017-11-29] MEDS: INSULIN LISPRO 100 UNITS/ML, PEN SQ-INSULIN SCH ×4 (07:51→21:22)
[2017-11-29] MEDS: ENOXAPARIN 30 MG/0.3 ML SQ SCH ×2 (07:51→20:54)
[2017-11-29] MEDS: THIAMINE 100MG TABLET PO SCH (07:51)
[2017-11-29] MEDS: ASPIRIN 81 MG TABLET CHEW PO SCH (07:51)
[2017-11-29] MEDS: INSULIN GLARGINE 100 UNITS/ML, PEN SQ-INSULIN SCH ×2 (07:53→21:21)
[2017-11-29 09:33] LABS: HCT (SEDRATE) 28.7 % (34.6-47.8)
[2017-11-29] MEDS ORDERED: CALCITRIOL 0.25 MCG CAPSULE ONE (11:26)
[2017-11-29] MEDS ORDERED: SEVELAMER CARBONATE 800MG TAB ONE (11:26)
[2017-11-29] MEDS ORDERED: ERGOCALCIFEROL 50,000 UNIT CAPSULE ONE (11:26)
[2017-11-29 14:25] VITALS: BP 109/69
[2017-11-29 19:35] VITALS: BP 120/67
[2017-11-29] MEDS: ATORVASTATIN 40 MG TABLET PO SCH (20:54)
[2017-11-30 00:29] VITALS: BP 122/79
[2017-11-30] MEDS: CEFTAROLINE 600 MG in SODIUM CHLORIDE 0.9% 100 ML IV SCH ×3 (01:14→17:19)
[2017-11-30] MEDS: GUAIFENESIN/COD200MG-20MG/10ML LIQUID PO PRN ×3 (04:23→18:39)
[2017-11-30 05:02] LABS: % IRON SATURATION 14 % (20-55); IRON LEVEL 32 mcg/dL (50-170); TOTAL IRON BINDING CAPACITY 233 mcg/dL (250-450)
[2017-11-30 05:05] LABS: HEMOGLOBIN A1C 6.1 % (4.2-6.3)
[2017-11-30 05:08] LABS: FOLATE LEVEL > 20.0 ng/mL (3.1-17.5)
[2017-11-30 06:40] VITALS: BP 120/84
[2017-11-30] MEDS: INSULIN LISPRO 100 UNITS/ML, PEN SQ-INSULIN SCH ×4 (07:00→22:03)
[2017-11-30] MEDS: CITALOPRAM 20 MG TABLET PO SCH (08:10)
[2017-11-30] MEDS: FOLIC ACID 1 MG TABLET PO SCH (08:11)
[2017-11-30] MEDS: THIAMINE 100MG TABLET PO SCH (08:11)
[2017-11-30] MEDS: ASPIRIN 81 MG TABLET CHEW PO SCH (08:11)
[2017-11-30] MEDS: OXYcodone/APAP 5/325MG TABLET PO PRN ×3 (08:11→20:40)
[2017-11-30] MEDS: ENOXAPARIN 30 MG/0.3 ML SQ SCH ×2 (08:12→22:02)
[2017-11-30] MEDS: INSULIN GLARGINE 100 UNITS/ML, PEN SQ-INSULIN SCH ×2 (08:13→22:04)
[2017-11-30] MEDS: FERROUS SULFATE 325 MG TABLET PO SCH (10:39)
[2017-11-30 13:49] VITALS: BP 112/68
[2017-11-30 20:58] VITALS: BP 129/77
[2017-11-30] MEDS: ATORVASTATIN 40 MG TABLET PO SCH (22:02)
[2017-12-01] MEDS: GUAIFENESIN/COD200MG-20MG/10ML LIQUID PO PRN ×3 (00:22→15:06)
[2017-12-01] MEDS: CEFTAROLINE 600 MG in SODIUM CHLORIDE 0.9% 100 ML IV SCH ×3 (01:56→17:26)
[2017-12-01] MEDS: OXYcodone/APAP 5/325MG TABLET PO PRN ×4 (02:35→21:17)
[2017-12-01 02:51] VITALS: BP 127/72
[2017-12-01 06:59] VITALS: BP 132/76
[2017-12-01] MEDS: INSULIN LISPRO 100 UNITS/ML, PEN SQ-INSULIN SCH ×4 (08:13→21:18)
[2017-12-01] MEDS: CITALOPRAM 20 MG TABLET PO SCH (08:49)
[2017-12-01] MEDS: THIAMINE 100MG TABLET PO SCH (08:49)
[2017-12-01] MEDS: FOLIC ACID 1 MG TABLET PO SCH (08:49)
[2017-12-01] MEDS: ASPIRIN 81 MG TABLET CHEW PO SCH (08:50)
[2017-12-01] MEDS: ENOXAPARIN 30 MG/0.3 ML SQ SCH ×2 (08:50→21:17)
[2017-12-01] MEDS: INSULIN GLARGINE 100 UNITS/ML, PEN SQ-INSULIN SCH ×2 (08:53→21:17)
[2017-12-01 14:31] VITALS: BP 123/82
[2017-12-01 18:51] VITALS: BP 119/58
[2017-12-01] MEDS: ATORVASTATIN 40 MG TABLET PO SCH (21:17)
[2017-12-02] MEDS: CEFTAROLINE 600 MG in SODIUM CHLORIDE 0.9% 100 ML IV SCH ×3 (01:21→17:16)
[2017-12-02 02:47] VITALS: BP 123/62
[2017-12-02] MEDS: INSULIN LISPRO 100 UNITS/ML, PEN SQ-INSULIN SCH ×4 (07:00→21:00)
[2017-12-02] MEDS: CITALOPRAM 20 MG TABLET PO SCH (08:48)
[2017-12-02] MEDS: ASPIRIN 81 MG TABLET CHEW PO SCH (08:48)
[2017-12-02] MEDS: OXYcodone/APAP 5/325MG TABLET PO PRN ×3 (08:49→21:18)
[2017-12-02] MEDS: THIAMINE 100MG TABLET PO SCH (08:49)
[2017-12-02] MEDS: FOLIC ACID 1 MG TABLET PO SCH (08:49)
[2017-12-02 09:15] VITALS: BP 125/73
[2017-12-02] MEDS: INSULIN GLARGINE 100 UNITS/ML, PEN SQ-INSULIN SCH ×2 (09:34→21:00)
[2017-12-02] MEDS: ENOXAPARIN 30 MG/0.3 ML SQ SCH ×2 (09:34→21:18)
[2017-12-02] MEDS: FERROUS SULFATE 325 MG TABLET PO SCH (09:34)
[2017-12-02] MEDS: GUAIFENESIN/COD200MG-20MG/10ML LIQUID PO PRN ×2 (13:58→20:32)
[2017-12-02 15:03] VITALS: BP 133/53
[2017-12-02 20:00] VITALS: BP 109/60
[2017-12-02] MEDS: ATORVASTATIN 40 MG TABLET PO SCH (21:18)
[2017-12-03] MEDS: CEFTAROLINE 600 MG in SODIUM CHLORIDE 0.9% 100 ML IV SCH ×3 (01:09→17:49)
[2017-12-03 02:00] VITALS: BP 101/60
[2017-12-03] MEDS: OXYcodone/APAP 5/325MG TABLET PO PRN ×4 (03:41→23:56)
[2017-12-03] MEDS: INSULIN LISPRO 100 UNITS/ML, PEN SQ-INSULIN SCH ×4 (07:00→20:17)
[2017-12-03 08:25] VITALS: BP 107/64
[2017-12-03] MEDS: FOLIC ACID 1 MG TABLET PO SCH (08:58)
[2017-12-03] MEDS: THIAMINE 100MG TABLET PO SCH (08:58)
[2017-12-03] MEDS: CITALOPRAM 20 MG TABLET PO SCH (08:59)
[2017-12-03] MEDS: ASPIRIN 81 MG TABLET CHEW PO SCH (08:59)
[2017-12-03] MEDS: GUAIFENESIN/COD200MG-20MG/10ML LIQUID PO PRN ×3 (09:00→23:56)
[2017-12-03] MEDS: ENOXAPARIN 30 MG/0.3 ML SQ SCH ×2 (09:01→20:17)
[2017-12-03] MEDS: INSULIN GLARGINE 100 UNITS/ML, PEN SQ-INSULIN SCH ×2 (09:02→20:38)
[2017-12-03 14:00] VITALS: BP 104/66
[2017-12-03 20:00] VITALS: BP_SYST 113; BP_SYST 120; BP_DIAS 55; BP_DIAS 69
[2017-12-03] MEDS: ATORVASTATIN 40 MG TABLET PO SCH (20:17)
[2017-12-04] MEDS: CEFTAROLINE 600 MG in SODIUM CHLORIDE 0.9% 100 ML IV SCH ×3 (01:11→17:15)
[2017-12-04 02:00] VITALS: BP 113/70
[2017-12-04] MEDS: INSULIN LISPRO 100 UNITS/ML, PEN SQ-INSULIN SCH ×4 (07:00→20:47)
[2017-12-04 07:53] VITALS: BP 110/65
[2017-12-04] MEDS: ENOXAPARIN 30 MG/0.3 ML SQ SCH ×2 (08:38→21:53)
[2017-12-04] MEDS: OXYcodone/APAP 5/325MG TABLET PO PRN ×3 (08:39→21:53)
[2017-12-04] MEDS: CITALOPRAM 20 MG TABLET PO SCH (08:39)
[2017-12-04] MEDS: FERROUS SULFATE 325 MG TABLET PO SCH (08:39)
[2017-12-04] MEDS: THIAMINE 100MG TABLET PO SCH (08:39)
[2017-12-04] MEDS: ASPIRIN 81 MG TABLET CHEW PO SCH (08:39)
[2017-12-04] MEDS: FOLIC ACID 1 MG TABLET PO SCH (08:39)
[2017-12-04] MEDS: INSULIN GLARGINE 100 UNITS/ML, PEN SQ-INSULIN SCH ×2 (08:40→21:53)
[2017-12-04] MEDS: GUAIFENESIN/COD200MG-20MG/10ML LIQUID PO PRN ×3 (10:25→23:44)
[2017-12-04 12:05] VITALS: BP 115/72
[2017-12-04 18:38] VITALS: BP 125/69
[2017-12-04] MEDS: ATORVASTATIN 40 MG TABLET PO SCH (21:53)
[2017-12-05] MEDS: CEFTAROLINE 600 MG in SODIUM CHLORIDE 0.9% 100 ML IV SCH ×3 (01:24→17:30)
[2017-12-05 01:26] VITALS: BP 122/73
[2017-12-05] MEDS: GUAIFENESIN/COD200MG-20MG/10ML LIQUID PO PRN ×2 (06:26→21:13)
[2017-12-05] MEDS: OXYcodone/APAP 5/325MG TABLET PO PRN ×3 (06:26→19:57)
[2017-12-05] MEDS: INSULIN LISPRO 100 UNITS/ML, PEN SQ-INSULIN SCH ×4 (07:00→21:14)
[2017-12-05 07:28] VITALS: BP 111/67
[2017-12-05] MEDS: metFORMIN 850 MG TABLET PO SCH ×2 (08:42→17:30)
[2017-12-05] MEDS: THIAMINE 100MG TABLET PO SCH (08:43)
[2017-12-05] MEDS: ASPIRIN 81 MG TABLET CHEW PO SCH (08:43)
[2017-12-05] MEDS: FOLIC ACID 1 MG TABLET PO SCH (08:43)
[2017-12-05] MEDS: ENOXAPARIN 30 MG/0.3 ML SQ SCH ×2 (08:43→21:14)
[2017-12-05] MEDS: CITALOPRAM 20 MG TABLET PO SCH (08:43)
[2017-12-05 14:41] VITALS: BP 107/68
[2017-12-05 19:24] VITALS: BP 120/68
[2017-12-05] MEDS: ATORVASTATIN 40 MG TABLET PO SCH (21:13)
[2017-12-06] MEDS: CEFTAROLINE 600 MG in SODIUM CHLORIDE 0.9% 100 ML IV SCH ×3 (01:20→17:44)
[2017-12-06 01:27] VITALS: BP 141/71
[2017-12-06] MEDS: OXYcodone/APAP 5/325MG TABLET PO PRN ×4 (02:27→22:12)
[2017-12-06] MEDS: INSULIN LISPRO 100 UNITS/ML, PEN SQ-INSULIN SCH ×4 (07:00→21:00)
[2017-12-06 08:20] VITALS: BP 97/54
[2017-12-06] MEDS: CITALOPRAM 20 MG TABLET PO SCH (08:56)
[2017-12-06] MEDS: ENOXAPARIN 30 MG/0.3 ML SQ SCH ×2 (08:56→21:23)
[2017-12-06] MEDS: GUAIFENESIN/COD200MG-20MG/10ML LIQUID PO PRN ×2 (08:56→15:04)
[2017-12-06] MEDS: FOLIC ACID 1 MG TABLET PO SCH (08:56)
[2017-12-06] MEDS: metFORMIN 850 MG TABLET PO SCH ×2 (08:57→17:44)
[2017-12-06] MEDS: ASPIRIN 81 MG TABLET CHEW PO SCH (08:57)
[2017-12-06] MEDS: FERROUS SULFATE 325 MG TABLET PO SCH (08:57)
[2017-12-06] MEDS: THIAMINE 100MG TABLET PO SCH (08:57)
[2017-12-06 15:00] VITALS: BP 112/66
[2017-12-06 19:10] VITALS: BP 138/73
[2017-12-06] MEDS: ATORVASTATIN 40 MG TABLET PO SCH (21:23)
[2017-12-07] MEDS: CEFTAROLINE 600 MG in SODIUM CHLORIDE 0.9% 100 ML IV SCH ×3 (01:25→16:19)
[2017-12-07 02:05] VITALS: BP 114/68
[2017-12-07] MEDS: OXYcodone/APAP 5/325MG TABLET PO PRN ×2 (05:14→11:20)
[2017-12-07] MEDS: INSULIN LISPRO 100 UNITS/ML, PEN SQ-INSULIN SCH ×4 (07:00→21:00)
[2017-12-07 07:26] VITALS: BP 113/70
[2017-12-07] MEDS: ENOXAPARIN 30 MG/0.3 ML SQ SCH ×2 (08:17→21:54)
[2017-12-07] MEDS: metFORMIN 850 MG TABLET PO SCH ×2 (08:17→16:20)
[2017-12-07] MEDS: CITALOPRAM 20 MG TABLET PO SCH (08:18)
[2017-12-07] MEDS: ASPIRIN 81 MG TABLET CHEW PO SCH (08:18)
[2017-12-07] MEDS: THIAMINE 100MG TABLET PO SCH (08:18)
[2017-12-07] MEDS: FOLIC ACID 1 MG TABLET PO SCH (08:18)
[2017-12-07 09:00] VITALS: BP 108/58
[2017-12-07 14:08] VITALS: BP 111/68
[2017-12-07 20:00] VITALS: BP 113/73
[2017-12-07] MEDS: ATORVASTATIN 40 MG TABLET PO SCH (21:54)
[2017-12-08] MEDS: CEFTAROLINE 600 MG in SODIUM CHLORIDE 0.9% 100 ML IV SCH ×3 (01:20→16:38)
[2017-12-08 02:00] VITALS: BP 115/67
[2017-12-08 04:34] LABS: BASOPHILS # (AUTO) 0.04 x10^3/uL (0-0.1); BASOPHILS % (AUTO) 1 % (0-1); EOSINOPHILS # (AUTO) 0.12 x10^3/uL (0-0.4); EOSINOPHILS % (AUTO) 3 % (1-7); LYMPHOCYTES # (AUTO) 1.93 x10^3/uL (1-3.4); LYMPHOCYTES % (AUTO) 39 % (22-44); MD NO; MEAN CORPUSCULAR HEMOGLOBIN 29.4 pg (27.0-34.8); MEAN CORPUSCULAR VOLUME 89.3 fL (80-100); MEAN PLATELET VOLUME 7.7 fL (7.4-10.4); MONOCYTES # (AUTO) 0.56 x10^3/uL (0.2-0.8); MONOCYTES % (AUTO) 11 % (2-9); NEUTROPHILS # (AUTO) 2.28 x10^3/uL (1.8-6.8); NEUTROPHILS % (AUTO) 46 % (42-75); PLATELET COUNT 392 x10^3/uL (130-400); RED BLOOD COUNT 3.57 x10^6/uL (3.82-5.3); RED CELL DISTRIBUTION WIDTH 15.3 % (9.6-15.2)
[2017-12-08 04:46] LABS: CHLORIDE 105 mmol/L (98-107)
[2017-12-08 04:51] LABS: ALANINE AMINOTRANSFERASE 20 U/L (12-78); ALBUMIN 3.3 g/dL (3.4-5.0); ALKALINE PHOSPHATASE 52 U/L (45-117); ANION GAP 8 mmol/L (5-15); BILIRUBIN,TOTAL 0.3 mg/dL (0.2-1.0); C-REACTIVE PROTEIN, QUANT 0.28 mg/dL (0.02-0.49); CALCIUM 9.1 mg/dL (8.5-10.1); CREATININE 0.62 mg/dL (0.55-1.02)
[2017-12-08 06:07] LABS: HCT (SEDRATE) 31.8 % (34.6-47.8)
[2017-12-08] MEDS: INSULIN LISPRO 100 UNITS/ML, PEN SQ-INSULIN SCH ×4 (07:00→21:00)
[2017-12-08 07:25] VITALS: BP 130/78
[2017-12-08] MEDS: THIAMINE 100MG TABLET PO SCH (09:00)
[2017-12-08] MEDS: metFORMIN 850 MG TABLET PO SCH ×2 (09:13→16:38)
[2017-12-08] MEDS: ENOXAPARIN 30 MG/0.3 ML SQ SCH ×2 (09:13→21:10)
[2017-12-08] MEDS: FOLIC ACID 1 MG TABLET PO SCH (09:14)
[2017-12-08] MEDS: CITALOPRAM 20 MG TABLET PO SCH (09:14)
[2017-12-08] MEDS: ASPIRIN 81 MG TABLET CHEW PO SCH (09:14)
[2017-12-08] MEDS: FERROUS SULFATE 325 MG TABLET PO SCH (11:51)
[2017-12-08 14:01] VITALS: BP 113/69
[2017-12-08 18:47] VITALS: BP 125/66
[2017-12-08] MEDS: ATORVASTATIN 40 MG TABLET PO SCH (21:10)
[2017-12-08] MEDS: ACETAMINOPHEN 325 MG TABLET PO PRN (21:10)
[2017-12-09] MEDS: CEFTAROLINE 600 MG in SODIUM CHLORIDE 0.9% 100 ML IV SCH ×3 (00:28→16:42)
[2017-12-09 00:32] VITALS: BP 112/74
[2017-12-09] MEDS: ONDANSETRON ODT 4 MG PO PRN ×2 (06:24→21:23)
[2017-12-09] MEDS: INSULIN LISPRO 100 UNITS/ML, PEN SQ-INSULIN SCH ×4 (07:00→20:56)
[2017-12-09] MEDS: THIAMINE 100MG TABLET PO SCH (09:00)
[2017-12-09] MEDS: ASPIRIN 81 MG TABLET CHEW PO SCH (09:17)
[2017-12-09] MEDS: metFORMIN 850 MG TABLET PO SCH ×2 (09:17→16:42)
[2017-12-09] MEDS: FOLIC ACID 1 MG TABLET PO SCH (09:17)
[2017-12-09] MEDS: CITALOPRAM 20 MG TABLET PO SCH (09:17)
[2017-12-09] MEDS: ENOXAPARIN 30 MG/0.3 ML SQ SCH ×2 (09:18→21:00)
[2017-12-09 09:20] VITALS: BP 107/54
[2017-12-09] MEDS ORDERED: OMNIPAQUE 350 MG/ML, 75ML BOTTLE ONE (12:24)
[2017-12-09 15:56] VITALS: BP 105/66
[2017-12-09 20:25] VITALS: BP 96/53
[2017-12-09] MEDS: ATORVASTATIN 40 MG TABLET PO SCH (21:00)
[2017-12-10] MEDS: CEFTAROLINE 600 MG in SODIUM CHLORIDE 0.9% 100 ML IV SCH ×3 (00:41→16:47)
[2017-12-10 01:51] VITALS: BP 126/67
[2017-12-10] MEDS: INSULIN LISPRO 100 UNITS/ML, PEN SQ-INSULIN SCH ×3 (07:00→21:18)
[2017-12-10] MEDS: THIAMINE 100MG TABLET PO SCH (08:19)
[2017-12-10] MEDS: ENOXAPARIN 30 MG/0.3 ML SQ SCH ×2 (08:19→21:21)
[2017-12-10] MEDS: FOLIC ACID 1 MG TABLET PO SCH (08:20)
[2017-12-10] MEDS: metFORMIN 850 MG TABLET PO SCH ×2 (08:20→16:47)
[2017-12-10] MEDS: CITALOPRAM 20 MG TABLET PO SCH (08:20)
[2017-12-10] MEDS: ASPIRIN 81 MG TABLET CHEW PO SCH (08:20)
[2017-12-10 08:35] VITALS: BP 111/58
[2017-12-10] MEDS: FERROUS SULFATE 325 MG TABLET PO SCH (10:26)
[2017-12-10 13:55] VITALS: BP 125/59
[2017-12-10 21:11] VITALS: BP 126/68
[2017-12-10] MEDS: ATORVASTATIN 40 MG TABLET PO SCH (21:20)
[2017-12-11] MEDS: CEFTAROLINE 600 MG in SODIUM CHLORIDE 0.9% 100 ML IV SCH ×3 (00:37→16:41)
[2017-12-11 03:25] VITALS: BP 104/60
[2017-12-11 04:32] LABS: CREATININE 0.52 mg/dL (0.55-1.02)
[2017-12-11 06:40] VITALS: BP 99/66
[2017-12-11] MEDS: CITALOPRAM 20 MG TABLET PO SCH (08:31)
[2017-12-11] MEDS: FOLIC ACID 1 MG TABLET PO SCH (08:31)
[2017-12-11] MEDS: metFORMIN 850 MG TABLET PO SCH ×2 (08:31→18:17)
[2017-12-11] MEDS: THIAMINE 100MG TABLET PO SCH (08:32)
[2017-12-11] MEDS: ASPIRIN 81 MG TABLET CHEW PO SCH (08:32)
[2017-12-11] MEDS: ENOXAPARIN 30 MG/0.3 ML SQ SCH ×2 (08:33→21:29)
[2017-12-11] MEDS: INSULIN LISPRO 100 UNITS/ML, PEN SQ-INSULIN SCH ×2 (08:33→21:00)
[2017-12-11 13:54] VITALS: BP 112/76
[2017-12-11] MEDS: ACETAMINOPHEN 325 MG TABLET PO PRN (18:17)
[2017-12-11 20:43] VITALS: BP 127/73
[2017-12-11] MEDS: ATORVASTATIN 40 MG TABLET PO SCH (21:30)
[2017-12-12] MEDS: CEFTAROLINE 600 MG in SODIUM CHLORIDE 0.9% 100 ML IV SCH (00:58)
[2017-12-12 02:24] VITALS: BP 113/70
[2017-12-12] MEDS: ENOXAPARIN 30 MG/0.3 ML SQ SCH ×3 (09:00→20:24)
[2017-12-12] MEDS: INSULIN LISPRO 100 UNITS/ML, PEN SQ-INSULIN SCH ×2 (09:00→20:22)
[2017-12-12 09:37] VITALS: BP 107/66
[2017-12-12] MEDS: DOXYCYCLINE 100MG CAP PO SCH ×2 (10:20→20:24)
[2017-12-12] MEDS: THIAMINE 100MG TABLET PO SCH (10:20)
[2017-12-12] MEDS: ASPIRIN 81 MG TABLET CHEW PO SCH (10:21)
[2017-12-12] MEDS: FOLIC ACID 1 MG TABLET PO SCH (10:21)
[2017-12-12] MEDS: metFORMIN 850 MG TABLET PO SCH ×2 (10:21→15:58)
[2017-12-12] MEDS: CITALOPRAM 20 MG TABLET PO SCH (10:21)
[2017-12-12] MEDS ORDERED: ASPI-515 PO (11:34)
[2017-12-12] MEDS ORDERED: FERR-51 PO (11:34)
[2017-12-12] MEDS ORDERED: DOXY100C2 PO ×2 (11:34→11:41)
[2017-12-12] MEDS ORDERED: THIA100T67 PO (11:34)
[2017-12-12] MEDS ORDERED: FOLI-17 PO (11:34)
[2017-12-12] MEDS ORDERED: METF850T PO (11:34)
[2017-12-12] MEDS ORDERED: ATOR40TA78 PO (11:34)
[2017-12-12 14:16] LABS: BASOPHILS # (AUTO) 0.04 x10^3/uL (0-0.1); BASOPHILS % (AUTO) 1 % (0-1); EOSINOPHILS # (AUTO) 0.09 x10^3/uL (0-0.4); EOSINOPHILS % (AUTO) 2 % (1-7); LYMPHOCYTES # (AUTO) 1.76 x10^3/uL (1-3.4); LYMPHOCYTES % (AUTO) 33 % (22-44); MD NO; MEAN CORPUSCULAR HEMOGLOBIN 28.8 pg (27.0-34.8); MEAN CORPUSCULAR HGB CONC 32.8 g/dL (32.4-35.8); MEAN CORPUSCULAR VOLUME 87.9 fL (80-100); MEAN PLATELET VOLUME 8.2 fL (7.4-10.4); MONOCYTES # (AUTO) 0.44 x10^3/uL (0.2-0.8); MONOCYTES % (AUTO) 8 % (2-9); NEUTROPHILS # (AUTO) 3.09 x10^3/uL (1.8-6.8); NEUTROPHILS % (AUTO) 57 % (42-75); PLATELET COUNT 408 x10^3/uL (130-400); RED BLOOD COUNT 3.79 x10^6/uL (3.82-5.3); RED CELL DISTRIBUTION WIDTH 15.2 % (9.6-15.2)
[2017-12-12 14:29] LABS: ALANINE AMINOTRANSFERASE 25 U/L (12-78); ALBUMIN 3.6 g/dL (3.4-5.0); ANION GAP 10 mmol/L (5-15); CALCIUM 8.9 mg/dL (8.5-10.1); CHLORIDE 104 mmol/L (98-107); CREATININE 0.63 mg/dL (0.55-1.02)
[2017-12-12 14:32] LABS: ALKALINE PHOSPHATASE 63 U/L (45-117); BILIRUBIN,TOTAL 0.3 mg/dL (0.2-1.0); TOTAL PROTEIN 8.2 g/dL (6.4-8.2)
[2017-12-12] MEDS: FERROUS SULFATE 325 MG TABLET PO SCH (15:58)
[2017-12-12 17:08] VITALS: BP 124/75
[2017-12-12 18:47] VITALS: BP 127/73
[2017-12-12] MEDS: ATORVASTATIN 40 MG TABLET PO SCH (20:24)
[2017-12-13 00:04] VITALS: BP 125/62
[2017-12-13 07:24] VITALS: BP 113/66
[2017-12-13] MEDS: THIAMINE 100MG TABLET PO SCH (08:24)
[2017-12-13] MEDS: FOLIC ACID 1 MG TABLET PO SCH (08:25)
[2017-12-13] MEDS: ASPIRIN 81 MG TABLET CHEW PO SCH (08:25)
[2017-12-13] MEDS: INSULIN LISPRO 100 UNITS/ML, PEN SQ-INSULIN SCH ×2 (08:25→21:00)
[2017-12-13] MEDS: ENOXAPARIN 30 MG/0.3 ML SQ SCH ×2 (08:25→20:36)
[2017-12-13] MEDS: metFORMIN 850 MG TABLET PO SCH ×2 (08:25→16:21)
[2017-12-13] MEDS: CITALOPRAM 20 MG TABLET PO SCH (08:25)
[2017-12-13] MEDS: DOXYCYCLINE 100MG CAP PO SCH ×2 (08:25→20:36)
[2017-12-13 12:32] VITALS: BP 126/78
[2017-12-13 19:00] VITALS: BP 143/83
[2017-12-13] MEDS: ATORVASTATIN 40 MG TABLET PO SCH (20:36)
[2017-12-14 01:01] VITALS: BP 110/63
[2017-12-14 07:40] VITALS: BP 114/72
[2017-12-14] MEDS: INSULIN LISPRO 100 UNITS/ML, PEN SQ-INSULIN SCH ×2 (09:00→21:00)
[2017-12-14] MEDS: CITALOPRAM 20 MG TABLET PO SCH (09:17)
[2017-12-14] MEDS: ASPIRIN 81 MG TABLET CHEW PO SCH (09:17)
[2017-12-14] MEDS: FOLIC ACID 1 MG TABLET PO SCH (09:17)
[2017-12-14] MEDS: THIAMINE 100MG TABLET PO SCH (09:17)
[2017-12-14] MEDS: DOXYCYCLINE 100MG CAP PO SCH ×2 (09:17→22:18)
[2017-12-14] MEDS: metFORMIN 850 MG TABLET PO SCH ×2 (09:17→18:03)
[2017-12-14] MEDS: ENOXAPARIN 30 MG/0.3 ML SQ SCH ×2 (09:18→22:18)
[2017-12-14 13:13] VITALS: BP 12/78
[2017-12-14 18:20] VITALS: BP 118/76
[2017-12-14] MEDS: FERROUS SULFATE 325 MG TABLET PO SCH (22:18)
[2017-12-14] MEDS: ATORVASTATIN 40 MG TABLET PO SCH (22:18)
[2017-12-15 02:11] VITALS: BP 104/58
[2017-12-15] MEDS: INSULIN LISPRO 100 UNITS/ML, PEN SQ-INSULIN SCH ×2 (09:00→20:46)
[2017-12-15] MEDS: THIAMINE 100MG TABLET PO SCH (09:04)
[2017-12-15] MEDS: CITALOPRAM 20 MG TABLET PO SCH (09:04)
[2017-12-15] MEDS: DOXYCYCLINE 100MG CAP PO SCH ×2 (09:04→20:46)
[2017-12-15] MEDS: metFORMIN 850 MG TABLET PO SCH ×2 (09:04→18:30)
[2017-12-15] MEDS: FOLIC ACID 1 MG TABLET PO SCH (09:04)
[2017-12-15] MEDS: ASPIRIN 81 MG TABLET CHEW PO SCH (09:04)
[2017-12-15] MEDS: ENOXAPARIN 30 MG/0.3 ML SQ SCH ×2 (09:05→20:47)
[2017-12-15 10:09] VITALS: BP 110/70
[2017-12-15 14:24] VITALS: BP 125/72
[2017-12-15] MEDS ORDERED: TRAM50TA2 PO (18:06)
[2017-12-15 19:30] VITALS: BP 106/54
[2017-12-15] MEDS: ATORVASTATIN 40 MG TABLET PO SCH (20:46)
[2017-12-16 02:46] VITALS: BP 117/70
[2017-12-16] MEDS: ACETAMINOPHEN 325 MG TABLET PO PRN ×2 (04:11→20:27)
[2017-12-16 08:00] VITALS: BP_SYST 117; BP_SYST 123; BP_DIAS 70; BP_DIAS 77
[2017-12-16] MEDS: INSULIN LISPRO 100 UNITS/ML, PEN SQ-INSULIN SCH ×2 (09:00→20:28)
[2017-12-16] MEDS: metFORMIN 850 MG TABLET PO SCH ×2 (09:02→17:39)
[2017-12-16] MEDS: THIAMINE 100MG TABLET PO SCH (09:02)
[2017-12-16] MEDS: FOLIC ACID 1 MG TABLET PO SCH (09:02)
[2017-12-16] MEDS: ENOXAPARIN 30 MG/0.3 ML SQ SCH (09:02)
[2017-12-16] MEDS: DOXYCYCLINE 100MG CAP PO SCH ×2 (09:02→20:27)
[2017-12-16] MEDS: CITALOPRAM 20 MG TABLET PO SCH (09:02)
[2017-12-16] MEDS: ASPIRIN 81 MG TABLET CHEW PO SCH (09:02)
[2017-12-16 15:55] VITALS: BP 130/78
[2017-12-16 19:26] VITALS: BP 132/80
[2017-12-16] MEDS: ATORVASTATIN 40 MG TABLET PO SCH (20:27)
[2017-12-16] MEDS: FERROUS SULFATE 325 MG TABLET PO SCH (22:09)
[2017-12-17] MEDS: ACETAMINOPHEN 325 MG TABLET PO PRN ×3 (00:43→21:09)
[2017-12-17 01:24] VITALS: BP 115/71
[2017-12-17 04:24] VITALS: BP 122/56
[2017-12-17 07:25] VITALS: BP 128/74
[2017-12-17] MEDS: THIAMINE 100MG TABLET PO SCH (07:28)
[2017-12-17] MEDS: DOXYCYCLINE 100MG CAP PO SCH ×2 (07:29→21:09)
[2017-12-17] MEDS: FOLIC ACID 1 MG TABLET PO SCH (07:29)
[2017-12-17] MEDS: ASPIRIN 81 MG TABLET CHEW PO SCH (07:29)
[2017-12-17] MEDS: metFORMIN 850 MG TABLET PO SCH ×2 (07:29→17:42)
[2017-12-17] MEDS: ENOXAPARIN 40 MG/0.4 ML SQ SCH (07:29)
[2017-12-17] MEDS: CITALOPRAM 20 MG TABLET PO SCH (07:29)
[2017-12-17] MEDS: INSULIN LISPRO 100 UNITS/ML, PEN SQ-INSULIN SCH ×2 (07:32→21:00)
[2017-12-17 14:49] VITALS: BP 119/70
[2017-12-17 19:31] VITALS: BP 131/82
[2017-12-17] MEDS: GUAIFENESIN/DM 200-20MG, 10ML UDC PO PRN (21:07)
[2017-12-17] MEDS: ATORVASTATIN 40 MG TABLET PO SCH (21:09)
[2017-12-18 00:42] VITALS: BP 127/72
[2017-12-18] MEDS: ACETAMINOPHEN 325 MG TABLET PO PRN ×2 (01:18→14:27)
[2017-12-18 05:57] LABS: CREATININE 0.52 mg/dL (0.55-1.02)
[2017-12-18 06:38] VITALS: BP 128/84
[2017-12-18] MEDS: THIAMINE 100MG TABLET PO SCH (08:18)
[2017-12-18] MEDS: metFORMIN 850 MG TABLET PO SCH ×2 (08:19→16:14)
[2017-12-18] MEDS: ENOXAPARIN 40 MG/0.4 ML SQ SCH (08:19)
[2017-12-18] MEDS: ASPIRIN 81 MG TABLET CHEW PO SCH (08:19)
[2017-12-18] MEDS: DOXYCYCLINE 100MG CAP PO SCH ×2 (08:19→20:35)
[2017-12-18] MEDS: CITALOPRAM 20 MG TABLET PO SCH (08:19)
[2017-12-18] MEDS: FOLIC ACID 1 MG TABLET PO SCH (08:19)
[2017-12-18] MEDS: GUAIFENESIN/DM 200-20MG, 10ML UDC PO PRN ×2 (09:10→20:36)
[2017-12-18 13:08] VITALS: BP 122/69
[2017-12-18 20:26] VITALS: BP 135/77
[2017-12-18] MEDS: FERROUS SULFATE 325 MG TABLET PO SCH (20:36)
[2017-12-18] MEDS: ATORVASTATIN 40 MG TABLET PO SCH (20:36)
[2017-12-19 01:18] VITALS: BP 117/74
[2017-12-19 05:54] LABS: HCT (SEDRATE) 33.3 % (34.6-47.8)
[2017-12-19 05:55] LABS: BASOPHILS # (AUTO) 0.05 x10^3/uL (0-0.1); BASOPHILS % (AUTO) 1 % (0-1); EOSINOPHILS # (AUTO) 0.15 x10^3/uL (0-0.4); EOSINOPHILS % (AUTO) 2 % (1-7); LYMPHOCYTES # (AUTO) 3.12 x10^3/uL (1-3.4); LYMPHOCYTES % (AUTO) 43 % (22-44); MD NO; MEAN CORPUSCULAR HEMOGLOBIN 29.6 pg (27.0-34.8); MEAN CORPUSCULAR HGB CONC 33.5 g/dL (32.4-35.8); MEAN CORPUSCULAR VOLUME 88.1 fL (80-100); MEAN PLATELET VOLUME 8.2 fL (7.4-10.4); MONOCYTES # (AUTO) 0.65 x10^3/uL (0.2-0.8); MONOCYTES % (AUTO) 9 % (2-9); NEUTROPHILS # (AUTO) 3.36 x10^3/uL (1.8-6.8); NEUTROPHILS % (AUTO) 46 % (42-75); PLATELET COUNT 378 x10^3/uL (130-400); RED BLOOD COUNT 4.04 x10^6/uL (3.82-5.3); RED CELL DISTRIBUTION WIDTH 14.7 % (9.6-15.2)
[2017-12-19 05:56] LABS: ALANINE AMINOTRANSFERASE 19 U/L (12-78); ALBUMIN 3.6 g/dL (3.4-5.0); ANION GAP 7 mmol/L (5-15); CALCIUM 9.2 mg/dL (8.5-10.1); CHLORIDE 104 mmol/L (98-107); CREATININE 0.51 mg/dL (0.55-1.02)
[2017-12-19 05:58] LABS: ALKALINE PHOSPHATASE 61 U/L (45-117); BILIRUBIN,TOTAL 0.3 mg/dL (0.2-1.0); TOTAL PROTEIN 7.9 g/dL (6.4-8.2)
[2017-12-19 06:42] VITALS: BP 116/72
[2017-12-19] MEDS: CITALOPRAM 20 MG TABLET PO SCH (08:28)
[2017-12-19] MEDS: FOLIC ACID 1 MG TABLET PO SCH (08:28)
[2017-12-19] MEDS: DOXYCYCLINE 100MG CAP PO SCH ×2 (08:28→20:17)
[2017-12-19] MEDS: ENOXAPARIN 40 MG/0.4 ML SQ SCH (08:28)
[2017-12-19] MEDS: metFORMIN 850 MG TABLET PO SCH ×2 (08:28→17:33)
[2017-12-19] MEDS: ASPIRIN 81 MG TABLET CHEW PO SCH (08:28)
[2017-12-19] MEDS: THIAMINE 100MG TABLET PO SCH (08:28)
[2017-12-19 12:08] VITALS: BP 123/66
[2017-12-19 19:53] VITALS: BP 138/74
[2017-12-19] MEDS: ATORVASTATIN 40 MG TABLET PO SCH (20:17)
[2017-12-20 00:46] VITALS: BP 107/64
[2017-12-20 06:42] VITALS: BP 112/73
[2017-12-20] MEDS: ENOXAPARIN 40 MG/0.4 ML SQ SCH (08:31)
[2017-12-20] MEDS: THIAMINE 100MG TABLET PO SCH (08:31)
[2017-12-20] MEDS: metFORMIN 850 MG TABLET PO SCH ×2 (08:31→16:45)
[2017-12-20] MEDS: CITALOPRAM 20 MG TABLET PO SCH (08:33)
[2017-12-20] MEDS: ASPIRIN 81 MG TABLET CHEW PO SCH (08:33)
[2017-12-20] MEDS: FOLIC ACID 1 MG TABLET PO SCH (08:33)
[2017-12-20] MEDS: DOXYCYCLINE 100MG CAP PO SCH ×2 (08:41→20:20)
[2017-12-20 12:17] VITALS: BP 115/89
[2017-12-20 19:51] VITALS: BP 138/66
[2017-12-20] MEDS: ATORVASTATIN 40 MG TABLET PO SCH (20:20)
[2017-12-20] MEDS: FERROUS SULFATE 325 MG TABLET PO SCH (20:20)
[2017-12-21 00:49] VITALS: BP 143/87
[2017-12-21 05:39] LABS: CREATININE 0.51 mg/dL (0.55-1.02)
[2017-12-21 08:07] VITALS: BP 146/87
[2017-12-21] MEDS: FOLIC ACID 1 MG TABLET PO SCH (08:21)
[2017-12-21] MEDS: THIAMINE 100MG TABLET PO SCH (08:21)
[2017-12-21] MEDS: metFORMIN 850 MG TABLET PO SCH ×2 (08:21→17:01)
[2017-12-21] MEDS: ASPIRIN 81 MG TABLET CHEW PO SCH (08:21)
[2017-12-21] MEDS: DOXYCYCLINE 100MG CAP PO SCH ×2 (08:21→21:27)
[2017-12-21] MEDS: ENOXAPARIN 40 MG/0.4 ML SQ SCH (08:21)
[2017-12-21] MEDS: CITALOPRAM 20 MG TABLET PO SCH (08:21)
[2017-12-21] MEDS: ALBUTEROL/IPRATROPIUM 2.5MG/0.5MG, 3 ML HHN SCH ×3 (11:00→23:00)
[2017-12-21] MEDS: ACETAMINOPHEN 325 MG TABLET PO PRN (11:59)
[2017-12-21 13:27] VITALS: BP 123/87
[2017-12-21 19:30] VITALS: BP 130/80
[2017-12-21] MEDS: ATORVASTATIN 40 MG TABLET PO SCH (21:27)
[2017-12-22 01:28] VITALS: BP 113/76
[2017-12-22] MEDS: ALBUTEROL/IPRATROPIUM 2.5MG/0.5MG, 3 ML HHN SCH ×2 (05:00→11:00)
[2017-12-22 07:33] VITALS: BP 153/90
[2017-12-22] MEDS: metFORMIN 850 MG TABLET PO SCH ×2 (07:44→16:25)
[2017-12-22] MEDS: FOLIC ACID 1 MG TABLET PO SCH (09:48)
[2017-12-22] MEDS: DOXYCYCLINE 100MG CAP PO SCH ×2 (09:49→20:03)
[2017-12-22] MEDS: ASPIRIN 81 MG TABLET CHEW PO SCH (09:49)
[2017-12-22] MEDS: CITALOPRAM 20 MG TABLET PO SCH (09:50)
[2017-12-22] MEDS: THIAMINE 100MG TABLET PO SCH (09:50)
[2017-12-22] MEDS: ENOXAPARIN 40 MG/0.4 ML SQ SCH (09:55)
[2017-12-22 11:02] LABS: BASOPHILS # (AUTO) 0.03 x10^3/uL (0-0.1); BASOPHILS % (AUTO) 1 % (0-1); EOSINOPHILS % (AUTO) 2 % (1-7); LYMPHOCYTES # (AUTO) 2.18 x10^3/uL (1-3.4); LYMPHOCYTES % (AUTO) 36 % (22-44); MD NO; MEAN CORPUSCULAR HEMOGLOBIN 29.7 pg (27.0-34.8); MEAN CORPUSCULAR HGB CONC 33.7 g/dL (32.4-35.8); MEAN CORPUSCULAR VOLUME 88.1 fL (80-100); MEAN PLATELET VOLUME 8.4 fL (7.4-10.4); MONOCYTES # (AUTO) 0.42 x10^3/uL (0.2-0.8); MONOCYTES % (AUTO) 7 % (2-9); NEUTROPHILS # (AUTO) 3.42 x10^3/uL (1.8-6.8); NEUTROPHILS % (AUTO) 56 % (42-75); PLATELET COUNT 386 x10^3/uL (130-400); RED BLOOD COUNT 4.11 x10^6/uL (3.82-5.3); RED CELL DISTRIBUTION WIDTH 14.8 % (9.6-15.2)
[2017-12-22 11:11] LABS: ANION GAP 10 mmol/L (5-15); CHLORIDE 106 mmol/L (98-107); CREATININE 0.61 mg/dL (0.55-1.02)
[2017-12-22 14:00] VITALS: BP 148/87
[2017-12-22 18:55] VITALS: BP 147/74
[2017-12-22] MEDS: ATORVASTATIN 40 MG TABLET PO SCH (20:03)
[2017-12-22] MEDS: FERROUS SULFATE 325 MG TABLET PO SCH (20:03)
[2017-12-23 01:50] VITALS: BP 127/80
[2017-12-23 05:44] LABS: BASOPHILS # (AUTO) 0.06 x10^3/uL (0-0.1); BASOPHILS % (AUTO) 1 % (0-1); CHLORIDE 106 mmol/L (98-107); EOSINOPHILS # (AUTO) 0.18 x10^3/uL (0-0.4); EOSINOPHILS % (AUTO) 3 % (1-7); LYMPHOCYTES # (AUTO) 2.85 x10^3/uL (1-3.4); LYMPHOCYTES % (AUTO) 41 % (22-44); MD NO; MEAN CORPUSCULAR HEMOGLOBIN 28.6 pg (27.0-34.8); MEAN CORPUSCULAR HGB CONC 32.7 g/dL (32.4-35.8); MEAN CORPUSCULAR VOLUME 87.5 fL (80-100); MEAN PLATELET VOLUME 8.5 fL (7.4-10.4); MONOCYTES % (AUTO) 9 % (2-9); NEUTROPHILS % (AUTO) 47 % (42-75); PLATELET COUNT 381 x10^3/uL (130-400); RED BLOOD COUNT 4.19 x10^6/uL (3.82-5.3); RED CELL DISTRIBUTION WIDTH 14.9 % (9.6-15.2)
[2017-12-23 05:51] LABS: ANION GAP 8 mmol/L (5-15); CALCIUM 8.9 mg/dL (8.5-10.1); CREATININE 0.52 mg/dL (0.55-1.02)
[2017-12-23 08:05] VITALS: BP 138/89
[2017-12-23] MEDS: DOXYCYCLINE 100MG CAP PO SCH ×2 (09:09→21:32)
[2017-12-23] MEDS: CITALOPRAM 20 MG TABLET PO SCH (09:09)
[2017-12-23] MEDS: ASPIRIN 81 MG TABLET CHEW PO SCH (09:10)
[2017-12-23] MEDS: FOLIC ACID 1 MG TABLET PO SCH (09:10)
[2017-12-23] MEDS: metFORMIN 850 MG TABLET PO SCH ×2 (09:10→17:35)
[2017-12-23] MEDS: THIAMINE 100MG TABLET PO SCH (09:10)
[2017-12-23] MEDS: ENOXAPARIN 40 MG/0.4 ML SQ SCH (09:11)
[2017-12-23 15:21] VITALS: BP 118/67
[2017-12-23 19:39] VITALS: BP 141/86
[2017-12-23] MEDS: ATORVASTATIN 40 MG TABLET PO SCH (21:32)
[2017-12-24 03:01] VITALS: BP 132/86
[2017-12-24 05:12] LABS: BASOPHILS # (AUTO) 0.05 x10^3/uL (0-0.1); BASOPHILS % (AUTO) 1 % (0-1); EOSINOPHILS % (AUTO) 3 % (1-7); LYMPHOCYTES # (AUTO) 2.72 x10^3/uL (1-3.4); LYMPHOCYTES % (AUTO) 39 % (22-44); MD NO; MEAN CORPUSCULAR HEMOGLOBIN 29.4 pg (27.0-34.8); MEAN CORPUSCULAR HGB CONC 33.3 g/dL (32.4-35.8); MEAN CORPUSCULAR VOLUME 88.5 fL (80-100); MEAN PLATELET VOLUME 8.5 fL (7.4-10.4); MONOCYTES # (AUTO) 0.68 x10^3/uL (0.2-0.8); MONOCYTES % (AUTO) 10 % (2-9); NEUTROPHILS # (AUTO) 3.42 x10^3/uL (1.8-6.8); NEUTROPHILS % (AUTO) 48 % (42-75); PLATELET COUNT 344 x10^3/uL (130-400); RED CELL DISTRIBUTION WIDTH 14.8 % (9.6-15.2)
[2017-12-24 05:17] LABS: ANION GAP 8 mmol/L (5-15); CALCIUM 8.8 mg/dL (8.5-10.1); CHLORIDE 107 mmol/L (98-107); CREATININE 0.55 mg/dL (0.55-1.02)
[2017-12-24 08:00] VITALS: BP 145/90
[2017-12-24] MEDS: ACETAMINOPHEN 325 MG TABLET PO PRN (08:19)
[2017-12-24] MEDS: metFORMIN 850 MG TABLET PO SCH ×2 (08:19→17:00)
[2017-12-24] MEDS: DOXYCYCLINE 100MG CAP PO SCH ×2 (09:19→20:28)
[2017-12-24] MEDS: ASPIRIN 81 MG TABLET CHEW PO SCH (09:19)
[2017-12-24] MEDS: ENOXAPARIN 40 MG/0.4 ML SQ SCH (09:19)
[2017-12-24] MEDS: CITALOPRAM 20 MG TABLET PO SCH (09:20)
[2017-12-24] MEDS: FOLIC ACID 1 MG TABLET PO SCH (09:20)
[2017-12-24] MEDS: THIAMINE 100MG TABLET PO SCH (09:20)
[2017-12-24 12:14] LABS: TROPONIN I < 0.015 ng/mL (0.000-0.045)
[2017-12-24] MEDS ORDERED: OMNIPAQUE 350 MG/ML, 100ML BOTTLE ONE (14:42)
[2017-12-24 15:00] VITALS: BP 135/87
[2017-12-24] MEDS: FERROUS SULFATE 325 MG TABLET PO SCH (20:28)
[2017-12-24] MEDS: ATORVASTATIN 40 MG TABLET PO SCH (20:28)
[2017-12-24 21:13] VITALS: BP 135/86
[2017-12-25 03:26] VITALS: BP 122/80
[2017-12-25 04:26] LABS: BASOPHILS # (AUTO) 0.04 x10^3/uL (0-0.1); BASOPHILS % (AUTO) 1 % (0-1); EOSINOPHILS # (AUTO) 0.13 x10^3/uL (0-0.4); EOSINOPHILS % (AUTO) 2 % (1-7); LYMPHOCYTES # (AUTO) 2.91 x10^3/uL (1-3.4); LYMPHOCYTES % (AUTO) 40 % (22-44); MD NO; MEAN CORPUSCULAR HEMOGLOBIN 29.3 pg (27.0-34.8); MEAN CORPUSCULAR HGB CONC 33.3 g/dL (32.4-35.8); MEAN CORPUSCULAR VOLUME 88.1 fL (80-100); MEAN PLATELET VOLUME 8.4 fL (7.4-10.4); MONOCYTES # (AUTO) 0.59 x10^3/uL (0.2-0.8); MONOCYTES % (AUTO) 8 % (2-9); NEUTROPHILS # (AUTO) 3.58 x10^3/uL (1.8-6.8); NEUTROPHILS % (AUTO) 49 % (42-75); PLATELET COUNT 369 x10^3/uL (130-400); RED BLOOD COUNT 4.32 x10^6/uL (3.82-5.3); RED CELL DISTRIBUTION WIDTH 14.8 % (9.6-15.2)
[2017-12-25 04:35] LABS: ANION GAP 7 mmol/L (5-15); CALCIUM 9.3 mg/dL (8.5-10.1); CHLORIDE 105 mmol/L (98-107)
[2017-12-25 04:37] LABS: CREATININE 0.46 mg/dL (0.55-1.02)
[2017-12-25 10:00] VITALS: BP 122/84
[2017-12-25] MEDS: FOLIC ACID 1 MG TABLET PO SCH (10:02)
[2017-12-25] MEDS: DOXYCYCLINE 100MG CAP PO SCH ×2 (10:02→20:51)
[2017-12-25] MEDS: ASPIRIN 81 MG TABLET CHEW PO SCH (10:03)
[2017-12-25] MEDS: CITALOPRAM 20 MG TABLET PO SCH (10:03)
[2017-12-25] MEDS: THIAMINE 100MG TABLET PO SCH (10:04)
[2017-12-25] MEDS: metFORMIN 850 MG TABLET PO SCH ×2 (10:04→20:51)
[2017-12-25] MEDS: ENOXAPARIN 40 MG/0.4 ML SQ SCH (10:05)
[2017-12-25 12:21] VITALS: BP 125/80
[2017-12-25] MEDS: ATORVASTATIN 40 MG TABLET PO SCH (20:51)
[2017-12-25 21:06] VITALS: BP 160/90
[2017-12-26 01:53] VITALS: BP 109/71
[2017-12-26 05:51] LABS: BASOPHILS # (AUTO) 0.04 x10^3/uL (0-0.1); BASOPHILS % (AUTO) 1 % (0-1); EOSINOPHILS # (AUTO) 0.12 x10^3/uL (0-0.4); EOSINOPHILS % (AUTO) 2 % (1-7); LYMPHOCYTES % (AUTO) 39 % (22-44); MD NO; MEAN CORPUSCULAR HEMOGLOBIN 29.3 pg (27.0-34.8); MEAN CORPUSCULAR HGB CONC 33.3 g/dL (32.4-35.8); MEAN CORPUSCULAR VOLUME 88.2 fL (80-100); MEAN PLATELET VOLUME 8.7 fL (7.4-10.4); MONOCYTES # (AUTO) 0.63 x10^3/uL (0.2-0.8); MONOCYTES % (AUTO) 9 % (2-9); NEUTROPHILS # (AUTO) 3.31 x10^3/uL (1.8-6.8); NEUTROPHILS % (AUTO) 49 % (42-75); PLATELET COUNT 358 x10^3/uL (130-400); RED BLOOD COUNT 4.26 x10^6/uL (3.82-5.3); RED CELL DISTRIBUTION WIDTH 14.9 % (9.6-15.2)
[2017-12-26 05:58] LABS: ALANINE AMINOTRANSFERASE 24 U/L (12-78); ALBUMIN 3.6 g/dL (3.4-5.0); ANION GAP 8 mmol/L (5-15); C-REACTIVE PROTEIN, QUANT 0.08 mg/dL (0.02-0.49); CALCIUM 9.2 mg/dL (8.5-10.1); CHLORIDE 107 mmol/L (98-107)
[2017-12-26 06:01] LABS: ALKALINE PHOSPHATASE 55 U/L (45-117); BILIRUBIN,TOTAL 0.3 mg/dL (0.2-1.0); CREATININE 0.44 mg/dL (0.55-1.02)
[2017-12-26] MEDS: metFORMIN 850 MG TABLET PO SCH ×2 (07:17→09:10)
[2017-12-26 07:56] VITALS: BP 120/78
[2017-12-26] MEDS: ENOXAPARIN 40 MG/0.4 ML SQ SCH (09:00)
[2017-12-26] MEDS: DOXYCYCLINE 100MG CAP PO SCH (09:06)
[2017-12-26] MEDS: FOLIC ACID 1 MG TABLET PO SCH (09:06)
[2017-12-26] MEDS: CITALOPRAM 20 MG TABLET PO SCH (09:06)
[2017-12-26] MEDS: THIAMINE 100MG TABLET PO SCH (09:06)
[2017-12-26] MEDS: ASPIRIN 81 MG TABLET CHEW PO SCH (09:06)
[2017-12-26 13:31] VITALS: BP 150/100
== END 2017-12-26 17:30 | disposition home or self-care (01) | DRG 870 ==
LOC: ED 07:22 → EDIP 07:27 → ED 08:23 → CCU 10:30 → 4WST 11-09 19:17 → 3NE 12-20 23:45
PROVIDERS: ADMIT Internal Medicine; ATTEND Hospitalist
PROC: 5A1955Z Respiratory Ventilation, Greater than 96 Consecutive Hours (ICD-10-PCS; principal; 2017-10-24)
PROC: 0BH18EZ Insertion of Endotracheal Airway into Trachea, Via Natural or Artificial Opening Endoscopic (ICD-10-PCS; 2017-10-24)
PROC: 0BB48ZX Excision of Right Upper Lobe Bronchus, Via Natural or Artificial Opening Endoscopic, Diagnostic (ICD-10-PCS; 2017-10-24)
PROC: 02HV33Z Insertion of Infusion Device into Superior Vena Cava, Percutaneous Approach (ICD-10-PCS; 2017-10-25)
PROC: B548ZZA Ultrasonography of Superior Vena Cava, Guidance (ICD-10-PCS; 2017-10-25)
PROC: 0B928ZZ Drainage of Carina, Via Natural or Artificial Opening Endoscopic (ICD-10-PCS; 2017-11-02)
PROC: 0B988ZZ Drainage of Left Upper Lobe Bronchus, Via Natural or Artificial Opening Endoscopic (ICD-10-PCS; 2017-11-02)
PROC: 0B918ZZ Drainage of Trachea, Via Natural or Artificial Opening Endoscopic (ICD-10-PCS; 2017-11-02)
PROC: 0B958ZZ Drainage of Right Middle Lobe Bronchus, Via Natural or Artificial Opening Endoscopic (ICD-10-PCS; 2017-11-02)
PROC: 0B968ZZ Drainage of Right Lower Lobe Bronchus, Via Natural or Artificial Opening Endoscopic (ICD-10-PCS; 2017-11-02)
PROC: 0B9B8ZZ Drainage of Left Lower Lobe Bronchus, Via Natural or Artificial Opening Endoscopic (ICD-10-PCS; 2017-11-02)
PROC: 0B998ZZ Drainage of Lingula Bronchus, Via Natural or Artificial Opening Endoscopic (ICD-10-PCS; 2017-11-02)
PROC: 02HV33Z Insertion of Infusion Device into Superior Vena Cava, Percutaneous Approach (ICD-10-PCS; 2017-11-24)
PROC: B5181ZA Fluoroscopy of Superior Vena Cava using Low Osmolar Contrast, Guidance (ICD-10-PCS; 2017-11-24)
PROC: B548ZZA Ultrasonography of Superior Vena Cava, Guidance (ICD-10-PCS; 2017-11-24)
DX: A41.02 Sepsis due to Methicillin resistant Staphylococcus aureus (principal); E43 Unspecified severe protein-calorie malnutrition; N17.0 Acute kidney failure with tubular necrosis; R65.21 Severe sepsis with septic shock; J15.212 Pneumonia due to Methicillin resistant Staphylococcus aureus; G93.41 Metabolic encephalopathy; J85.0 Gangrene and necrosis of lung; J85.1 Abscess of lung with pneumonia; J96.01 Acute respiratory failure with hypoxia; E87.1 Hypo-osmolality and hyponatremia; E87.2 Acidosis; J44.0 Chronic obstructive pulmonary disease with (acute) lower respiratory infection; Z99.11 Dependence on respirator [ventilator] status; B18.2 Chronic viral hepatitis C; D50.9 Iron deficiency anemia, unspecified; E11.65 Type 2 diabetes mellitus with hyperglycemia; E66.9 Obesity, unspecified; E83.39 Other disorders of phosphorus metabolism; E83.42 Hypomagnesemia; E87.6 Hypokalemia; E87.70 Fluid overload, unspecified; F10.10 Alcohol abuse, uncomplicated; Z87.891 Personal history of nicotine dependence; F32.9 Major depressive disorder, single episode, unspecified; F43.10 Post-traumatic stress disorder, unspecified; G47.00 Insomnia, unspecified; G89.29 Other chronic pain; I10 Essential (primary) hypertension; Z51.5 Encounter for palliative care; Z59.0 Homelessness; Z86.73 Personal history of transient ischemic attack (TIA), and cerebral infarction without residual deficits; Z68.31 Body mass index [BMI] 31.0-31.9, adult
CPT/HCPCS: 36415; 36600; 77001; 87806; 99285; J7613; J7620; 31622; 31624; 36569; 71045; 71046; 71250; 71260; 71275; 76937; 80048; 80053; 80202; 80307; 82274; 82533; 82565; 82607; 82746; 82803; 82962; 83036; 83540; 83550; 83605; 83735; 83880; 84100; 84478; 84484; 85025; 85379; 85610; 85651; 86140; 86706; 86803; 87015; 87040; 87070; 87077; 87081; 87102; 87116; 87147; 87186; 87205; 87206; 87340; 87521; 88108; 88112; 88312; 93005; 93306; 93970; 94002; 94003; 94150; 94640; 96365; 96366; 96368; 96375; 96376; J0696; J0712; J1650; J2020; J2250; J2543; J2704; J3010; J3360; J3370; J3480; J3486; J3490; J7060; P9047; Q0162; Q9967; C1751; C9113; G0475; J1815; J1940; J2060; J2930; J3475; J7030; J7040; J7050